=== PATIENT | male | born 1955 | race Caucasian/White ===

== ENCOUNTER 2018-10-13 12:33 | Emergency (ER) | payer MEDICARE, MEDICAID | END 2018-10-13 13:43 | disposition home or self-care (01) | LOC: M ED 12:33 | DX: T14.8XXA Other injury of unspecified body region, initial encounter (principal); W01.0XXA Fall on same level from slipping, tripping and stumbling without subsequent striking against object, initial encounter; Y92.098 Other place in other non-institutional residence as the place of occurrence of the external cause | CPT/HCPCS: 99283 ==

== ENCOUNTER 2019-05-30 15:23 | Emergency (ER) | payer MEDICARE, MEDICAID ==
[~2019-05-30 15:23] MED LIST: BENA25CA2 PO; BETA0.0543 TOP; CALC600T7 PO; CARB1TAB20 PO; DEBR6.5S4 AU; DRIS50003 PO; FLUP5TA PO; HALDOL PO; HYDROCORTISONE AU; LOTRCRE TOP; LOVA20TA2 PO; NEOMYCIN AU; NYST1POW9 TOP; OMEP20TA PO; OXYC-141 PO; POLYMYXIN B AU; PRIL20CA9 PO; STRETAB4 PO; TESS100C PO; VALI10TA PO; VALI2TAB PO
[2019-05-30 16:19] LABS: BASO % 0.7 % (0.0-1.0); EOS # 0.1 10^3/uL (0.0-0.50); EOS % 1.5 % (0.0-3.0); HEMATOCRIT 35.4 % (42.0-52.0); HEMOGLOBIN 12.6 g/dl (13.5-17.5); LYMPH % 20.7 % (24.0-44.0); MEAN CORPUSCULAR HEMOGLOBIN 36.8 pg (27.0-33.0); MEAN CORPUSCULAR HGB CONC 35.6 g/dl (32.0-36.5); MEAN CORPUSCULAR VOLUME 103.5 fl (80.0-96.0); MONO # 0.5 10^3/uL (0.0-0.8); NEUTROPHILS # 3.1 10^3/uL (1.8-7.7); NEUTROPHILS % 66.7 % (36.0-66.0); PLATELET COUNT, AUTOMATED 206 10^3/uL (150-450); RED BLOOD COUNT 3.42 10^6/uL (4.30-6.10); WHITE BLOOD COUNT 4.6 10^3/uL (4.0-10.0)
--- NOTE | 2019-05-30 16:41 | REP ---
CT brain without contrast: History: Altered mental status. No comparison brain CT. Findings: No bony calvarial defect is seen. Visualized paranasal sinuses are clear. No intraorbital abnormalities appreciated. On soft tissue window settings, there is mild diffuse atrophy. There is no evidence of intracranial hemorrhage. No mass, extra-axial fluid collection, infarct or midline shift. Impression: Minimal volume loss. Otherwise negative noncontrast head CT. Electronically Signed by Joseluis Arevalo MD 05/31/2019 07:44 A
[2019-05-30 16:52] LABS: ALBUMIN 3.4 GM/DL (3.2-5.2); ALT/SGPT 27 U/L (12-78); BILIRUBIN,DIRECT 0.1 MG/DL (0.0-0.2); BILIRUBIN,TOTAL 0.3 MG/DL (0.2-1.0); BLOOD UREA NITROGEN 14 MG/DL (7-18); CALCIUM LEVEL 8.3 MG/DL (8.8-10.2); CARBAMAZEPINE (TEGRETOL) LEVEL 7.7 UG/ML (4.0-10.0); CARBON DIOXIDE LEVEL 27 MEQ/L (21-32); CHLORIDE LEVEL 96 MEQ/L (98-107); CPK CREATINE PHOSPHOKINASE 138 U/L (39-308); CREATININE FOR GFR 0.85 MG/DL (0.70-1.30); GLOMERULAR FILTRATION RATE > 60.0 (>49); GLUCOSE, FASTING 112 MG/DL (70-100); MB/CK RELATIVE INDEX 1.45 (< OR =4); POTASSIUM SERUM 3.6 MEQ/L (3.5-5.1); SODIUM LEVEL 129 MEQ/L (136-145); TOTAL PROTEIN 6.9 GM/DL (6.4-8.2); TROPONIN I 0.02 NG/ML (< 0.10)
--- NOTE | 2019-05-30 17:32 | REP ---
Supine abdomen two AP views: There are no comparisons. There are mildly distended large and small bowel loops in a nonspecific pattern. There are no calcifications or foreign bodies. Skeletal structures are unremarkable. Impression: Nonspecific bowel gas pattern. Electronically Signed by Jeffery Mcrae MD 05/30/2019 05:23 P
[2019-05-30] MEDS ORDERED: carBAMazepine 200 MG TAB PO ONE (19:45)
--- NOTE | 2019-05-30 20:56 | ECGEPIP ---
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
[2019-05-30 22:32] LABS: CK-MB VALUE MASS 1.7 NG/ML (<3.6); CPK CREATINE PHOSPHOKINASE 113 U/L (39-308); TROPONIN I < 0.02 NG/ML (< 0.10)
[2019-05-30 23:00] VITALS: BP 144/68
--- NOTE | 2019-05-30 23:42 | ECGEPIP ---
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
== END 2019-05-30 23:35 | disposition home or self-care (01) ==
LOC: EDBD 15:23 → M ED 15:23
DX: R55 Syncope and collapse (principal); F84.0 Autistic disorder; F63.81 Intermittent explosive disorder; Z79.899 Other long term (current) drug therapy; F79 Unspecified intellectual disabilities

== ENCOUNTER 2019-08-30 11:51 | Emergency (ER) | payer MEDICARE, MEDICAID ==
[~2019-08-30] VITALS: Ht 175.3 cm; Wt 63.6 kg
[2019-08-30 11:51] VITALS: BP 135/74
[~2019-08-30 11:51] MED LIST changes: +OMEP-358 PO; -OMEP20TA PO
[2019-08-30] MEDS ORDERED: NYST1POW9 TOP (13:37)
[2019-08-30] MEDS ORDERED: MM S100C PO (13:37)
[2019-08-30] MEDS ORDERED: MOM30SS PO (13:59)
--- NOTE | 2019-08-30 14:31 | REP ---
Abdomen series: Four views. History: Constipation, rule out perforation. Comparison KUB study May 30, 2019. Findings: The patient was unable to stand and the exam was accomplished supine. AP supine chest x-ray shows no evidence of infiltrate. Mild cardiomegaly is observed. The thoracic aorta somewhat tortuous. Pulmonary vasculature is not increased. Multiple supine views of the abdomen demonstrate a normal bowel gas pattern. There is a small quantity of formed stool in the ascending colon and in the splenic flexure. The previously noted fecal distension of the rectum and sigmoid colon has resolved. There is no evidence of free air on the supine radiographs. Impression: Somewhat limited study, exam done supine. Normal bowel gas pattern improved from May 30, 2019. Electronically Signed by Joseluis Arevalo MD 08/30/2019 06:46 P
== END 2019-08-30 14:29 | disposition home or self-care (01) ==
LOC: M ED 11:51
DX: K59.00 Constipation, unspecified (principal); F79 Unspecified intellectual disabilities; F63.81 Intermittent explosive disorder; R56.9 Unspecified convulsions; Z79.899 Other long term (current) drug therapy

== ENCOUNTER 2020-11-19 10:34 | Emergency (ER) | payer MEDICARE, MEDICAID ==
[~2020-11-19] VITALS: Ht 172.7 cm; Wt 69.1 kg
[~2020-11-19 10:34] MED LIST changes: +CALC-212 PO; -CALC600T7 PO; -FLUP5TA PO; +FLUP5TAB13 PO; +MM S100C PO; +MOM30SS PO
--- NOTE | 2020-11-19 11:28 | REP ---
INDICATION: fell down stairs COMPARISON: 05/30/2019 TECHNIQUE: Axial noncontrast images from the skull base to the thoracic inlet with coronal reformations. This CT examination was performed using the following dose reduction techniques: Automated exposure control, adjustment of mA and/or kv according to the patient's size, and use of iterative reconstruction technique. FINDINGS: Age-related atrophy and microvascular ischemic changes are appreciated. The ventricles and sulci are symmetric. Johnson-white differentiation is maintained. There is no evidence for acute intracranial hemorrhage, mass/mass effect, pathology or infarction. No extra-axial fluid collection. Calvarium is intact. Paranasal sinuses and mastoid air cells are clear. IMPRESSION: Age related atrophy and microvascular ischemic changes. No acute intracranial hemorrhage, infarction, or mass/mass effect. <Electronically signed by Brian Bowen > 11/19/20 1124
--- NOTE | 2020-11-19 11:30 | REP ---
INDICATION: fell down stairs COMPARISON: None. TECHNIQUE: Axial noncontrast images from the skull base to the thoracic inlet with coronal and sagittal re-formations This CT examination was performed using the following dose reduction techniques: Automated exposure control, adjustment of mA and/or kv according to the patient's size, and use of iterative reconstruction technique. FINDINGS: Degenerative changes include exaggerated lordosis and moderate to advanced degenerative disc osteophyte complexes primarily involving C5-6 and C6-7 including osteophytosis, endplate sclerosis and disc space narrowing as well as facet arthropathy. Alignment is relatively maintained and there is no evidence for acute fracture/compression injury or subluxation. Spinal canal appears patent. Posterior elements and spinous processes are intact. Paravertebral soft tissues are within normal limits. Lung apices are clear. IMPRESSION: Age-related degenerative changes. No evidence for acute fracture/compression injury or subluxation. <Electronically signed by Brian Bowen > 11/19/20 [id number]
--- NOTE | 2020-11-19 11:53 | REP ---
INDICATION: fell down stairs, limpng (nonverbal). COMPARISON: None. TECHNIQUE: AP view pelvis, AP and frogleg views right hip. FINDINGS: There is no evidence of acute fracture, dislocation or intrinsic bone disease. IMPRESSION: No fracture or dislocation. <Electronically signed by Jeffery Johnson > 11/19/20 1145
--- NOTE | 2020-11-19 11:55 | REP ---
INDICATION: fell down stairs, limpng (nonverbal) COMPARISON: None. TECHNIQUE: Four views right knee. FINDINGS: There is no evidence of acute fracture, dislocation, or intrinsic bone disease. IMPRESSION: No fracture or dislocation. <Electronically signed by Jeffery Johnson > 11/19/20 [id number]
--- NOTE | 2020-11-19 11:56 | REP ---
INDICATION: fell down stairs, limpng (nonverbal) COMPARISON: None. TECHNIQUE: Four views right ankle. FINDINGS: There is no evidence of acute fracture, dislocation, or intrinsic bone disease. IMPRESSION: No fracture or dislocation. <Electronically signed by Jeffery Johnson > 11/19/20 [id number]
[2020-11-19 12:32] VITALS: BP 141/76
== END 2020-11-19 12:33 | disposition home or self-care (01) ==
LOC: M ED 10:34
DX: S00.81XA Abrasion of other part of head, initial encounter (principal); W10.9XXA Fall (on) (from) unspecified stairs and steps, initial encounter; Y92.89 Other specified places as the place of occurrence of the external cause; Y93.9 Activity, unspecified; Y99.9 Unspecified external cause status; F79 Unspecified intellectual disabilities; R56.9 Unspecified convulsions; Z79.899 Other long term (current) drug therapy

== ENCOUNTER → 2020-11-27 | Outpatient (REF) | payer MEDICARE, MEDICAID ==
[2020-11-28 16:30] LABS: APPEARANCE, URINE CLEAR (CLEAR); BACTERIA, URINE AUTO NEGATIVE (NEGATIVE); BILIRUBIN, URINE AUTO NEGATIVE (NEGATIVE); BLOOD, URINE BLOOD NEGATIVE (NEGATIVE); COLOR, URINE STRAW (YELLOW); GLUCOSE, URINE (UA) AUTO NEGATIVE (NEGATIVE); KETONE, URINE AUTO NEGATIVE (NEGATIVE); LEUKOCYTE ESTERASE, URINE AUTO NEGATIVE (NEGATIVE); NITRITE, URINE AUTO NEGATIVE (NEGATIVE); PROTEIN, URINE AUTO NEGATIVE (NEGATIVE); RBC, URINE AUTO 0 /HPF (0-3); SPECIFIC GRAVITY URINE AUTO 1.004 (1.002-1.035); SQUAMOUS EPITHELIAL CELL UR AU 0 /HPF (0-6); UROBILINOGEN, URINE AUTO 0.2 mg/dL (0.0-2.0); WBC, URINE AUTO 0 /HPF (0-3)
== END ==
LOC: M LAB REF 15:52
PROVIDERS: ATTEND Physician Assistant Medical
DX: R30.0 Dysuria (principal)

== ENCOUNTER → 2020-12-10 | Outpatient (CLI) | payer MEDICARE, MEDICAID ==
[2020-12-10 11:55] LABS: BASO # 0.1 10^3/uL (0.0-0.2); BASO % 1.7 % (0.0-1.0); EOS % 0.2 % (0.0-3.0); HEMATOCRIT 38.7 % (42.0-52.0); HEMOGLOBIN 13.3 g/dl (13.5-17.5); LYMPH # 1.1 10^3/uL (1.5-5.0); LYMPH % 27.5 % (24.0-44.0); MEAN CORPUSCULAR HGB CONC 34.4 g/dl (32.0-36.5); MEAN CORPUSCULAR VOLUME 104.9 fl (80.0-96.0); MONO # 0.5 10^3/uL (0.0-0.8); MONO % 11.1 % (0.0-5.0); NEUTROPHILS # 2.4 10^3/uL (1.5-8.5); PLATELET COUNT, AUTOMATED 294 10^3/uL (150-450); RED BLOOD COUNT 3.69 10^6/uL (4.30-6.10)
[2020-12-10 12:34] LABS: ALBUMIN 3.7 GM/DL (3.2-5.2); ALT/SGPT 34 U/L (12-78); BILIRUBIN,TOTAL 0.2 MG/DL (0.2-1.0); BLOOD UREA NITROGEN 15 MG/DL (7-18); CARBON DIOXIDE LEVEL 31 MEQ/L (21-32); CHLORIDE LEVEL 100 MEQ/L (98-107); CHOLESTEROL LEVEL 165 MG/DL (<200); CHOLESTEROL RISK RATIO 1.941 (<5); CREATININE FOR GFR 0.73 MG/DL (0.70-1.30); FREE T4 0.79 NG/DL (0.76-1.46); GLOMERULAR FILTRATION RATE > 60.0 (>49); GLUCOSE, FASTING 104 MG/DL (70-100); HDL CHOLESTEROL 85 MG/DL (>40); LDL CHOLESTEROL 69 MG/DL (<100); NON-HDL-C 80 MG/DL; POTASSIUM SERUM 3.8 MEQ/L (3.5-5.1); PROSTATIC SPECIFIC AG MONITOR 0.42 NG/ML (< 4.00); SODIUM LEVEL 139 MEQ/L (136-145); TOTAL PROTEIN 7.4 GM/DL (6.4-8.2); TRIGLYCERIDES LEVEL 55 MG/DL (<150)
== END ==
LOC: M WUC 08:43
PROVIDERS: ATTEND Physician Assistant Medical
DX: I10 Essential (primary) hypertension (principal); R53.83 Other fatigue; E78.2 Mixed hyperlipidemia; Z12.5 Encounter for screening for malignant neoplasm of prostate; R97.20 Elevated prostate specific antigen [PSA]

== ENCOUNTER → 2021-01-16 | Outpatient (CLI) | payer MEDICARE, MEDICAID ==
[2021-01-16 13:51] LABS: HEMOGLOBIN A1c 5.2 %
[2021-01-16 13:59] LABS: PROLACTIN 24.7 NG/ML (2.1-17.7)
== END ==
LOC: M WUC 09:16
PROVIDERS: ATTEND Physician Assistant
DX: Z51.81 Encounter for therapeutic drug level monitoring (principal); Z79.899 Other long term (current) drug therapy

== ENCOUNTER 2021-04-03 20:48 | Emergency (ER) | payer MEDICARE, MEDICAID ==
[~2021-04-03] VITALS: Ht 175.3 cm; Wt 55.9 kg
[2021-04-03] MEDS ORDERED: AUGM0.05 EX (22:32)
[2021-04-03] MEDS ORDERED: SODI1TAB12 PO (22:32)
[2021-04-03] MEDS ORDERED: NOXI1TAB PO (22:32)
[2021-04-03 23:23] VITALS: BP 123/65
== END 2021-04-03 23:25 | disposition home or self-care (01) ==
LOC: M ED 20:48
DX: S00.91XA Abrasion of unspecified part of head, initial encounter (principal); S20.419A Abrasion of unspecified back wall of thorax, initial encounter; S70.211A Abrasion, right hip, initial encounter; X58.XXXA Exposure to other specified factors, initial encounter; Y92.009 Unspecified place in unspecified non-institutional (private) residence as the place of occurrence of the external cause; Y93.89 Activity, other specified; Y99.8 Other external cause status; Z79.899 Other long term (current) drug therapy; Z86.69 Personal history of other diseases of the nervous system and sense organs

== ENCOUNTER → 2021-06-07 | Outpatient (CLI) | payer MEDICARE, MEDICAID ==
[~2021-06-07] MED LIST changes: +AUGM0.05 EX; +BENA25CA4 PO; +MIRA1POW3 PO; +NOXI1TAB PO; +SODI1TAB12 PO; +THERTAB52 PO
[2021-06-07 10:54] LABS: BASO # 0.1 10^3/uL (0.0-0.2); BASO % 1.8 % (0.0-1.0); EOS # 0.1 10^3/uL (0.0-0.5); EOS % 1.5 % (0.0-3.0); HEMATOCRIT 38.6 % (42.0-52.0); HEMOGLOBIN 13.6 g/dl (13.5-17.5); LYMPH % 30.1 % (24.0-44.0); MEAN CORPUSCULAR HEMOGLOBIN 36.6 pg (27.0-33.0); MEAN CORPUSCULAR HGB CONC 35.2 g/dl (32.0-36.5); MEAN CORPUSCULAR VOLUME 103.8 fl (80.0-96.0); MONO # 0.4 10^3/uL (0.0-0.8); MONO % 13.1 % (2.0-8.0); NEUTROPHILS # 1.8 10^3/uL (1.5-8.5); NEUTROPHILS % 53.2 % (36.0-66.0); PLATELET COUNT, AUTOMATED 230 10^3/uL (150-450); RED BLOOD COUNT 3.72 10^6/uL (4.30-6.10); WHITE BLOOD COUNT 3.3 10^3/uL (4.0-10.0)
[2021-06-07 11:09] LABS: INR 0.93; PROTHROMBIN TIME 12.7 SECONDS (12.5-14.3)
[2021-06-07 11:10] LABS: PARTIAL THROMBOPLASTIN TIME 31.5 SECONDS (24.2-38.5)
[2021-06-07 11:35] LABS: ALBUMIN 3.7 GM/DL (3.2-5.2); ALT/SGPT 35 U/L (12-78); BILIRUBIN,TOTAL 0.2 MG/DL (0.2-1.0); BLOOD UREA NITROGEN 10 MG/DL (7-18); CALCIUM LEVEL 8.8 MG/DL (8.8-10.2); CARBON DIOXIDE LEVEL 30 MEQ/L (21-32); CHLORIDE LEVEL 99 MEQ/L (98-107); CHOLESTEROL LEVEL 164 MG/DL (<200); CHOLESTEROL RISK RATIO 1.906 (<5); CREATININE FOR GFR 0.53 MG/DL (0.70-1.30); FREE T4 0.69 NG/DL (0.76-1.46); GLOMERULAR FILTRATION RATE > 60.0 (>49); GLUCOSE, FASTING 93 MG/DL (70-100); HDL CHOLESTEROL 86 MG/DL (>40); LDL CHOLESTEROL 66 MG/DL (<100); NON-HDL-C 78 MG/DL; POTASSIUM SERUM 4.1 MEQ/L (3.5-5.1); SODIUM LEVEL 135 MEQ/L (136-145); TOTAL PROTEIN 7.5 GM/DL (6.4-8.2); TRIGLYCERIDES LEVEL 58 MG/DL (<150)
--- NOTE | 2021-06-07 12:11 | REP ---
INDICATION: OTHER FATIGUE-LABS 1ST-EKG 2ND-XR LAST. COMPARISON: Comparison radiograph August 30, 2019.. TECHNIQUE: Frontal view of the chest. Single-view. FINDINGS: The patient is rotated somewhat to the right for the current exposure. There is increased density at the anterior end of the right 2nd rib which may be healing rib fracture. There is diffuse osteopenia. No other bony abnormality is seen. The lung christian are symmetrically aerated and clear. The pleural angles are sharp. Pulmonary vasculature is not increased. The thoracic aorta is somewhat tortuous. Heart size is borderline. IMPRESSION: Diffuse osteopenia. Borderline heart size. Right anterior 2nd rib fracture suspected, healing. <Electronically signed by Krzysztof Arevalo > 06/07/21 1050
--- NOTE | 2021-06-08 18:51 | ECGEPIP ---
[facility] Test Date: 2021-06-07 Pat Name: VENKATA CALVIN Department: Room: - Gender: Male Head Of Stock: GARY : 1955 Requested By: Lei Kwong Order Number: [id number] Reading MD: Sarthak Mock Measurements Intervals [place] Rate: 64 P: 60 [place]: 180 QRS: 27 QRSD: 90 T: 49 QT: 380 QTc: 392 Interpretive Statements Normal sinus rhythm Mild IVCD Compared to prior tracings (2) in the system. No remarkable changes Electronically Signed on 06-08-2021 18:51:26 EDT by Sarthak Mock
== END ==
LOC: M LAB 10:04
PROVIDERS: ATTEND Physician Assistant Medical
DX: Z01.812 Encounter for preprocedural laboratory examination (principal); R53.83 Other fatigue; I10 Essential (primary) hypertension; E78.2 Mixed hyperlipidemia; M85.80 Other specified disorders of bone density and structure, unspecified site

== ENCOUNTER → 2021-06-10 | Outpatient (CLI) | payer MEDICARE, MEDICAID | LOC: M LABSMTC 10:22 | PROVIDERS: ATTEND Anesthesiology | DX: Z01.812 Encounter for preprocedural laboratory examination (principal); Z20.822 Contact with and (suspected) exposure to COVID-19 ==

== ENCOUNTER → 2022-01-14 | Outpatient (CLI) | payer MEDICARE, MEDICAID ==
[~2022-01-14] MED LIST changes: +HALO5TAB33 PO
[2022-01-14 11:22] LABS: BASO # 0.1 10^3/uL (0.0-0.2); BASO % 2.5 % (0.0-1.0); EOS # 0.1 10^3/uL (0.0-0.5); EOS % 2.2 % (0.0-3.0); HEMOGLOBIN 13.7 g/dl (13.5-17.5); LYMPH # 1.2 10^3/uL (1.5-5.0); LYMPH % 36.2 % (24.0-44.0); MEAN CORPUSCULAR HEMOGLOBIN 35.4 pg (27.0-33.0); MEAN CORPUSCULAR HGB CONC 34.3 g/dl (32.0-36.5); MEAN CORPUSCULAR VOLUME 103.4 fl (80.0-96.0); MONO # 0.4 10^3/uL (0.0-0.8); MONO % 13.2 % (2.0-8.0); NEUTROPHILS # 1.5 10^3/uL (1.5-8.5); NEUTROPHILS % 45.6 % (36.0-66.0); PLATELET COUNT, AUTOMATED 195 10^3/uL (150-450); RED BLOOD COUNT 3.87 10^6/uL (4.30-6.10); WHITE BLOOD COUNT 3.2 10^3/uL (4.0-10.0)
[2022-01-14 11:29] LABS: INR 0.99; PROTHROMBIN TIME 13.5 SECONDS (12.7-14.5)
[2022-01-14 11:30] LABS: PARTIAL THROMBOPLASTIN TIME 31.9 SECONDS (25.9-37.0)
[2022-01-14 12:17] LABS: ALBUMIN 3.5 GM/DL (3.2-5.2); ALT/SGPT 28 U/L (12-78); BILIRUBIN,TOTAL 0.3 MG/DL (0.2-1.0); BLOOD UREA NITROGEN 11 MG/DL (7-18); CALCIUM LEVEL 8.7 MG/DL (8.8-10.2); CARBON DIOXIDE LEVEL 30 MEQ/L (21-32); CHLORIDE LEVEL 100 MEQ/L (98-107); CREATININE FOR GFR 0.65 MG/DL (0.70-1.30); GLOMERULAR FILTRATION RATE > 60.0 (>49); GLUCOSE, FASTING 82 MG/DL (70-100); PHOSPHORUS LEVEL 3.6 MG/DL (2.5-4.9); SODIUM LEVEL 134 MEQ/L (136-145); TOTAL PROTEIN 7.1 GM/DL (6.4-8.2)
== END ==
LOC: M RAD 09:53
PROVIDERS: ATTEND Physician Assistant
DX: Z01.818 Encounter for other preprocedural examination (principal); Z00.8 Encounter for other general examination; I10 Essential (primary) hypertension; Z79.899 Other long term (current) drug therapy

== ENCOUNTER → 2022-01-20 | Outpatient (CLI) | payer MEDICARE, MEDICAID | LOC: M LABSMTC 09:27 | PROVIDERS: ATTEND Anesthesiology | DX: Z01.812 Encounter for preprocedural laboratory examination (principal); Z20.822 Contact with and (suspected) exposure to COVID-19 ==

== ENCOUNTER 2022-01-24 09:14 | Day surgery (SDC) | payer MEDICARE, MEDICAID ==
[~2022-01-24] VITALS: Ht 172.7 cm; Wt 56.7 kg
[~2022-01-24 09:14] MED LIST changes: +ACETAMINOPHEN 1000MG 100ML IV BTL (OFIRMEV) (J0131 PER 10MG) As Ordered ONE; +LIDOCAINE 1% MDV 20ML VIAL SQ PRN; +LIDOCAINE 2% 100MG/5ML SDV (FOR ANES.) As Ordered ONE; +LR 1,000 ML IV ONE; +MIDAZOLAM INJ 2MG/2ML VIAL (J2250 PER 1MG) As Ordered ONE; +ONDANSETRON 4MG/2ML VIAL As Ordered ONE; +ROCURONIUM BROMIDE 50 MG/5 ML VIAL As Ordered ONE; +SUGAMMADEX SODIUM 500 MG/5 ML VIAL (BRIDION) As Ordered ONE; +dexameTHASONE 4 MG/ML 1ML VIAL (J1100 PER 1MG) As Ordered ONE; +fentaNYL 100 MCG/2 ML INJECTION As Ordered ONE; +propofoL 200 MG/20 ML VIAL As Ordered ONE
[2022-01-24] MEDS ORDERED: LIDOCAINE W/EPINEPHRINE 1% 20ML VIAL As Ordered ONE (09:42)
[2022-01-24] MEDS ORDERED: ePHEDrine SULFATE 25 MG/5 ML(5MG/ML) SYRINGE As Ordered ONE (10:12)
[2022-01-24] MEDS ORDERED: PHENYLephrine 500MCG 5ML (100MCG/ML) SYRINGE As Ordered ONE (10:14)
[2022-01-24] MEDS ORDERED: MEPERIDINE INJ 25 MG/ML VIAL (J2175) IV PRN (11:15)
[2022-01-24] MEDS ORDERED: LR 1,000 ML IV SCH (11:15)
[2022-01-24] MEDS ORDERED: ONDANSETRON 4MG/2ML VIAL IV PRN (11:15)
[2022-01-24] MEDS ORDERED: oxyCODONE 5MG TAB PO PRN (11:15)
[2022-01-24] MEDS ORDERED: fentaNYL 100 MCG/2 ML INJECTION IV PRN (11:15)
[2022-01-24 11:30] VITALS: BP 154/92
== END 2022-01-24 12:01 | disposition home or self-care (01) ==
LOC: M SDC 09:14
PROVIDERS: ATTEND Dentist Oral and Maxillofacial Surgery
DX: K02.9 Dental caries, unspecified (principal); R62.50 Unspecified lack of expected normal physiological development in childhood; K59.00 Constipation, unspecified; E55.9 Vitamin D deficiency, unspecified; K21.9 Gastro-esophageal reflux disease without esophagitis; F41.9 Anxiety disorder, unspecified; R56.9 Unspecified convulsions; R55 Syncope and collapse; Z79.899 Other long term (current) drug therapy
CPT/HCPCS: 41899; 88300; J0131; J1100; J2250; J2370; J2405; J3010

== ENCOUNTER → 2022-09-11 | Outpatient (CLI) | payer MEDICARE, MEDICAID ==
[~2022-09-11] MED LIST changes: -ACETAMINOPHEN 1000MG 100ML IV BTL (OFIRMEV) (J0131 PER 10MG) As Ordered ONE; -LIDOCAINE 1% MDV 20ML VIAL SQ PRN; -LIDOCAINE 2% 100MG/5ML SDV (FOR ANES.) As Ordered ONE; -LR 1,000 ML IV ONE; -MIDAZOLAM INJ 2MG/2ML VIAL (J2250 PER 1MG) As Ordered ONE; -ONDANSETRON 4MG/2ML VIAL As Ordered ONE; -ROCURONIUM BROMIDE 50 MG/5 ML VIAL As Ordered ONE; -SUGAMMADEX SODIUM 500 MG/5 ML VIAL (BRIDION) As Ordered ONE; -dexameTHASONE 4 MG/ML 1ML VIAL (J1100 PER 1MG) As Ordered ONE; -fentaNYL 100 MCG/2 ML INJECTION As Ordered ONE; -propofoL 200 MG/20 ML VIAL As Ordered ONE
[2022-09-11 10:07] LABS: BASO % 0.7 % (0.0-1.0); EOS # 0.1 10^3/uL (0.0-0.5); HEMATOCRIT 40.5 % (42.0-52.0); LYMPH # 1.3 10^3/uL (1.5-5.0); LYMPH % 28.4 % (24.0-44.0); MEAN CORPUSCULAR HEMOGLOBIN 35.8 pg (27.0-33.0); MEAN CORPUSCULAR HGB CONC 34.6 g/dl (32.0-36.5); MEAN CORPUSCULAR VOLUME 103.6 fl (80.0-96.0); MONO # 0.5 10^3/uL (0.0-0.8); NEUTROPHILS # 2.6 10^3/uL (1.5-8.5); NEUTROPHILS % 56.7 % (36.0-66.0); PLATELET COUNT, AUTOMATED 254 10^3/uL (150-450); RED BLOOD COUNT 3.91 10^6/uL (4.30-6.10); WHITE BLOOD COUNT 4.5 10^3/uL (4.0-10.0)
[2022-09-11 10:57] LABS: ALBUMIN 3.6 GM/DL (3.2-5.2); ALT/SGPT 36 U/L (12-78); BILIRUBIN,TOTAL 0.4 MG/DL (0.2-1.0); BLOOD UREA NITROGEN 14 MG/DL (7-18); CALCIUM LEVEL 9.1 MG/DL (8.8-10.2); CARBON DIOXIDE LEVEL 28 MEQ/L (21-32); CHLORIDE LEVEL 101 MEQ/L (98-107); CHOLESTEROL LEVEL 152 MG/DL (<200); CREATININE FOR GFR 0.72 MG/DL (0.70-1.30); GLOMERULAR FILTRATION RATE > 60.0 (>49); GLUCOSE, FASTING 82 MG/DL (70-100); HDL CHOLESTEROL 71 MG/DL (>40); LDL CHOLESTEROL 70 MG/DL (<100); NON-HDL-C 81 MG/DL; POTASSIUM SERUM 4.1 MEQ/L (3.5-5.1); SODIUM LEVEL 136 MEQ/L (136-145); TOTAL PROTEIN 7.6 GM/DL (6.4-8.2); TRIGLYCERIDES LEVEL 56 MG/DL (<150)
[2022-09-11 11:21] LABS: PROLACTIN 35.7 NG/ML (2.1-17.7)
== END ==
LOC: M WUC 08:31
PROVIDERS: ATTEND Physician Assistant
DX: Z79.899 Other long term (current) drug therapy (principal)

== ENCOUNTER → 2023-07-27 | Outpatient (REF) | payer MEDICARE, MEDICAID ==
[~2023-07-27] MED LIST changes: +DIAZ-654 PO; -VALI10TA PO
[2023-07-27 13:08] LABS: THYROXINE (T4) 4.7 UG/DL (4.5-10.9)
[2023-07-27 13:09] LABS: THYROID STIMULATING HORMONE 3.619 uIU/ML (0.55-4.78)
== END ==
LOC: M WUC 11:36
PROVIDERS: ATTEND Nurse Practitioner Adult Health
DX: E03.9 Hypothyroidism, unspecified (principal)

== ENCOUNTER → 2023-07-31 | Outpatient (CLI) | payer MEDICARE, MEDICAID | LOC: M RAD 12:11 | PROVIDERS: ATTEND Nurse Practitioner Adult Health | DX: E03.9 Hypothyroidism, unspecified (principal); R05.3 Chronic cough; F50.9 Eating disorder, unspecified ==

== ENCOUNTER 2023-09-29 11:33 | Emergency (ER) | payer MEDICARE, MEDICAID ==
[~2023-09-29] VITALS: Ht 172.7 cm; Wt 60.8 kg
[2023-09-29 12:16] LABS: BASO % 0.9 % (0.0-1.0); EOS % 0.6 % (0.0-3.0); HEMATOCRIT 40.4 % (42.0-52.0); HEMOGLOBIN 14.1 g/dl (13.5-17.5); LYMPH # 0.7 10^3/uL (1.5-5.0); MEAN CORPUSCULAR HEMOGLOBIN 36.1 pg (27.0-33.0); MEAN CORPUSCULAR HGB CONC 34.9 g/dl (32.0-36.5); MEAN CORPUSCULAR VOLUME 103.3 fl (80.0-96.0); MONO # 0.4 10^3/uL (0.0-0.8); MONO % 9.4 % (2.0-8.0); NEUTROPHILS # 3.4 10^3/uL (1.5-8.5); NEUTROPHILS % 73.7 % (36.0-66.0); PLATELET COUNT, AUTOMATED 218 10^3/uL (150-450); RED BLOOD COUNT 3.91 10^6/uL (4.30-6.10); WHITE BLOOD COUNT 4.7 10^3/uL (4.0-10.0)
[2023-09-29 12:43] LABS: CK-MB VALUE MASS < 1.0 NG/ML (<3.6)
[2023-09-29 12:44] LABS: ALBUMIN 3.7 G/DL (3.2-5.2); ALKALINE PHOSPHATASE 91 U/L (46-116); ALT/SGPT 34 U/L (7.0-40); AST/SGOT 26 U/L (<34); BILIRUBIN,DIRECT 0.1 MG/DL (<0.4); BILIRUBIN,TOTAL 0.3 MG/DL (0.3-1.2); TOTAL PROTEIN 7.2 G/DL (5.7-8.2)
[2023-09-29 12:46] LABS: THYROID STIMULATING HORMONE 7.824 uIU/ML (0.55-4.78)
[2023-09-29 12:52] LABS: CPK CREATINE PHOSPHOKINASE 84 U/L (46-171); MB/CK RELATIVE INDEX 1.19 (< OR =4)
[2023-09-29 12:55] LABS: RSV AMPLIFICATION NEGATIVE (NEGATIVE)
[2023-09-29 14:52] VITALS: BP 152/94; TEMP 98.9; O2SAT 97
== END 2023-09-29 15:06 | disposition home or self-care (01) ==
LOC: M ED 11:33
DX: I95.9 Hypotension, unspecified (principal); F79 Unspecified intellectual disabilities; K21.9 Gastro-esophageal reflux disease without esophagitis; Z79.899 Other long term (current) drug therapy

== ENCOUNTER → 2023-10-20 | Outpatient (CLI) | payer MEDICARE, MEDICAID ==
[~2023-10-20] MED LIST changes: +E-Z-GAS II EFFERVESCENT PACKET (SODIUM BICARB./CITRIC ACID/SIMETHICONE) As Ordered ONE; +E-Z-HD 98% w/w 340GM SUSP BTL As Ordered ONE; +E-Z-PAQUE 96% w/w SUSP 176GM BTL As Ordered ONE
== END ==
LOC: M RAD 09:45
PROVIDERS: ATTEND Nurse Practitioner Adult Health
DX: R11.10 Vomiting, unspecified (principal); R19.7 Diarrhea, unspecified; N39.46 Mixed incontinence; Z53.9 Procedure and treatment not carried out, unspecified reason

== ENCOUNTER → 2023-10-21 | Outpatient (CLI) | payer MEDICARE, MEDICAID ==
[~2023-10-21] MED LIST changes: -E-Z-GAS II EFFERVESCENT PACKET (SODIUM BICARB./CITRIC ACID/SIMETHICONE) As Ordered ONE; -E-Z-HD 98% w/w 340GM SUSP BTL As Ordered ONE; -E-Z-PAQUE 96% w/w SUSP 176GM BTL As Ordered ONE
[2023-10-21 06:32] LABS: BASO # 0.1 10^3/uL (0.0-0.2); BASO % 1.4 % (0.0-1.0); EOS # 0.1 10^3/uL (0.0-0.5); EOS % 1.6 % (0.0-3.0); HEMATOCRIT 38.8 % (42.0-52.0); HEMOGLOBIN 13.6 g/dl (13.5-17.5); LYMPH # 1.2 10^3/uL (1.5-5.0); LYMPH % 33.3 % (24.0-44.0); MEAN CORPUSCULAR HEMOGLOBIN 36.4 pg (27.0-33.0); MEAN CORPUSCULAR HGB CONC 35.1 g/dl (32.0-36.5); MEAN CORPUSCULAR VOLUME 103.7 fl (80.0-96.0); MONO # 0.4 10^3/uL (0.0-0.8); NEUTROPHILS % 53.4 % (36.0-66.0); PLATELET COUNT, AUTOMATED 377 10^3/uL (150-450); RED BLOOD COUNT 3.74 10^6/uL (4.30-6.10); WHITE BLOOD COUNT 3.7 10^3/uL (4.0-10.0)
[2023-10-21 06:55] LABS: ALBUMIN 3.1 G/DL (3.2-5.2); ALKALINE PHOSPHATASE 83 U/L (46-116); ALT/SGPT 32 U/L (7.0-40); AST/SGOT 18 U/L (<34); BILIRUBIN,TOTAL 0.3 MG/DL (0.3-1.2); BLOOD UREA NITROGEN 9 MG/DL (9-23); CALCIUM LEVEL 8.7 MG/DL (8.3-10.6); CARBON DIOXIDE LEVEL 29 MMOL/L (20-31); CHLORIDE LEVEL 102 MMOL/L (98-107); CHOLESTEROL LEVEL 146 MG/DL (<200); CHOLESTEROL RISK RATIO 2.85 (<5); CREATININE FOR GFR 0.57 MG/DL (0.70-1.30); GLOMERULAR FILTRATION RATE > 60.0 (>49); GLUCOSE, FASTING 103 MG/DL (74-106); HDL CHOLESTEROL 51.1 MG/DL (>40); LDL CHOLESTEROL 79.7 MG/DL (<100); NON-HDL-C 94.9 MG/DL; POTASSIUM SERUM 4.2 MMOL/L (3.5-5.1); PROLACTIN 23.43 NG/ML (2.1-17.7); SODIUM LEVEL 137 MMOL/L (136-145); TOTAL PROTEIN 6.9 G/DL (5.7-8.2); TRIGLYCERIDES LEVEL 76 MG/DL (<150)
[2023-10-21 06:59] LABS: HEMOGLOBIN A1c 5.1 % (4.0-6.0)
== END ==
LOC: M LAB 06:04
PROVIDERS: ATTEND Physician Assistant
DX: Z79.899 Other long term (current) drug therapy (principal)

== ENCOUNTER → 2024-05-02 | Outpatient (REF) | payer MEDICARE, MEDICAID ==
[~2024-05-02] MED LIST changes: -MIRA1POW3 PO; +MIRA33506 PO
== END ==
LOC: M LAB REF 12:08
PROVIDERS: ATTEND Nurse Practitioner Adult Health
DX: R35.89 Other polyuria (principal)

== ENCOUNTER 2024-06-02 17:29 | Emergency (ER) | payer MEDICARE, MEDICAID ==
[~2024-06-02] VITALS: Ht 175.3 cm; Wt 55.9 kg
[2024-06-02 18:35] LABS: BASO # 0.1 10^3/uL (0.0-0.2); BASO % 1.6 % (0.0-1.0); EOS # 0.1 10^3/uL (0.0-0.5); EOS % 2.7 % (0.0-3.0); HEMATOCRIT 37.7 % (42.0-52.0); HEMOGLOBIN 13.1 g/dl (13.5-17.5); LYMPH # 1.6 10^3/uL (1.5-5.0); LYMPH % 41.9 % (24.0-44.0); MEAN CORPUSCULAR HEMOGLOBIN 36.7 pg (27.0-33.0); MEAN CORPUSCULAR HGB CONC 34.7 g/dl (32.0-36.5); MEAN CORPUSCULAR VOLUME 105.6 fl (80.0-96.0); MONO # 0.4 10^3/uL (0.0-0.8); MONO % 10.5 % (2.0-8.0); NEUTROPHILS # 1.6 10^3/uL (1.5-8.5); NEUTROPHILS % 42.8 % (36.0-66.0); PLATELET COUNT, AUTOMATED 188 10^3/uL (150-450); RED BLOOD COUNT 3.57 10^6/uL (4.30-6.10); WHITE BLOOD COUNT 3.7 10^3/uL (4.0-10.0)
[2024-06-02 18:56] LABS: BLOOD UREA NITROGEN 13 MG/DL (9-23); CALCIUM LEVEL 8.7 MG/DL (8.3-10.6); CARBON DIOXIDE LEVEL 29 MMOL/L (20-31); CHLORIDE LEVEL 105 MMOL/L (98-107); CREATININE FOR GFR 0.66 MG/DL (0.70-1.30); GLOMERULAR FILTRATION RATE > 60.0 (>49); GLUCOSE, FASTING 110 MG/DL (74-106); SODIUM LEVEL 139 MMOL/L (136-145)
[2024-06-02 18:58] LABS: FREE T4 0.74 NG/DL (0.89-1.76); THYROID STIMULATING HORMONE 4.651 uIU/ML (0.55-4.78)
[2024-06-02 19:22] VITALS: BP 148/78; TEMP 98.8; O2SAT 98
== END 2024-06-02 19:26 | disposition home or self-care (01) ==
LOC: EDBD 17:29 → M ED 17:29
DX: Z71.1 Person with feared health complaint in whom no diagnosis is made (principal); F63.81 Intermittent explosive disorder; R00.1 Bradycardia, unspecified; F79 Unspecified intellectual disabilities; G40.909 Epilepsy, unspecified, not intractable, without status epilepticus; E78.5 Hyperlipidemia, unspecified; Z79.899 Other long term (current) drug therapy

== ENCOUNTER → 2024-07-14 | Outpatient (CLI) | payer MEDICARE, MEDICAID ==
[2024-07-14 12:23] LABS: HEMATOCRIT 35.8 % (42.0-52.0); HEMOGLOBIN 12.3 g/dl (13.5-17.5); MEAN CORPUSCULAR HEMOGLOBIN 36.9 pg (27.0-33.0); MEAN CORPUSCULAR HGB CONC 34.4 g/dl (32.0-36.5); MEAN CORPUSCULAR VOLUME 107.5 fl (80.0-96.0); PLATELET COUNT, AUTOMATED 198 10^3/uL (150-450); RED BLOOD COUNT 3.33 10^6/uL (4.30-6.10); WHITE BLOOD COUNT 13.1 10^3/uL (4.0-10.0)
[2024-07-14 12:46] LABS: VITAMIN B12 LEVEL 1062 PG/ML (211-911)
[2024-07-14 12:47] LABS: ALBUMIN 3.5 G/DL (3.2-5.2); ALKALINE PHOSPHATASE 90 U/L (46-116); ALT/SGPT 42 U/L (7.0-40); AST/SGOT 27 U/L (<34); BILIRUBIN,TOTAL 0.6 MG/DL (0.3-1.2); BLOOD UREA NITROGEN 10 MG/DL (9-23); CALCIUM LEVEL 8.8 MG/DL (8.3-10.6); CARBON DIOXIDE LEVEL 31 MMOL/L (20-31); CHLORIDE LEVEL 102 MMOL/L (98-107); CREATININE FOR GFR 0.56 MG/DL (0.70-1.30); FOLATE > 24.0 NG/ML (>5.4); GLOMERULAR FILTRATION RATE > 60.0 (>49); GLUCOSE, FASTING 105 MG/DL (74-106); IRON (FE) 16 UG/DL (65-175); PERCENT SATURATION 6.3 % (19.7-50.0); SODIUM LEVEL 136 MMOL/L (136-145); THYROID STIMULATING HORMONE 5.015 uIU/ML (0.55-4.78); TOTAL IRON BINDING CAPACITY 256 UG/DL (250-425); TOTAL PROTEIN 6.9 G/DL (5.7-8.2)
[2024-07-14 13:39] LABS: LYMPHOCYTES 6 % (16-44); NEUTROPHILS 94 % (28-66)
[2024-07-14 13:40] LABS: PLATELET ESTIMATE NORMAL (NORMAL)
== END ==
LOC: M WUC 09:34
PROVIDERS: ATTEND Nurse Practitioner Adult Health
DX: F79 Unspecified intellectual disabilities (principal); E03.9 Hypothyroidism, unspecified; D53.9 Nutritional anemia, unspecified

== ENCOUNTER 2024-11-02 01:04 | Emergency (ER) | payer MEDICAID, MEDICARE ==
[~2024-11-02] VITALS: Ht 162.6 cm; Wt 81.8 kg
[~2024-11-02 01:04] MED LIST changes: -AUGM0.05 EX; +AUGM0.0511 EX; +NYST1POW3 TOP; -NYST1POW9 TOP
[2024-11-02 02:49] VITALS: BP 130/70; TEMP 98.2; O2SAT 100
[2024-11-02] MEDS ORDERED: AMOX875T2 PO (12:16)
[2024-11-02] MEDS ORDERED: AZIT-12 PO (12:16)
[2024-11-02] MEDS ORDERED: FOLI1TAB11 PO (12:16)
[2024-11-02] MEDS ORDERED: LEVO50TA5 PO (12:16)
[2024-11-02] MEDS ORDERED: CALC1TAB63 PO (14:59)
[2024-11-02] MEDS ORDERED: APAP325T4 PO (14:59)
[2024-11-02] MEDS ORDERED: DIAZ10TA2 PO (14:59)
[2024-11-02] MEDS ORDERED: IBUP-1720 PO (14:59)
[2024-11-02] MEDS ORDERED: DIPH50CA29 PO (14:59)
[2024-11-02] MEDS ORDERED: MURI6.5D AU (14:59)
[2024-11-02] MEDS ORDERED: VITA500045 PO (14:59)
[2024-11-02] MEDS ORDERED: STRETAB36 PO (14:59)
[2024-11-02] MEDS ORDERED: DOK100TA2 PO (14:59)
== END 2024-11-02 06:54 | disposition home or self-care (01) ==
LOC: M ED 01:04 → EDBD 01:04 → M ED 06:54
DX: S00.03XA Contusion of scalp, initial encounter (principal); Y92.019 Unspecified place in single-family (private) house as the place of occurrence of the external cause; Y93.9 Activity, unspecified; Y99.9 Unspecified external cause status; W10.8XXA Fall (on) (from) other stairs and steps, initial encounter; Z79.1 Long term (current) use of non-steroidal anti-inflammatories (NSAID); Z79.2 Long term (current) use of antibiotics; Z79.899 Other long term (current) drug therapy

== ENCOUNTER 2024-11-02 11:20 | Inpatient (IN) | payer MEDICARE ==
[~2024-11-02] VITALS: Ht 162.6 cm; Wt 46.7 kg
[~2024-11-02 11:20] MED LIST changes: +LEVOTHYROXINE 100MCG (0.1MG) 5ML SDV PF (SOLUTION FORM) IV ONE
[2024-11-02] MEDS ORDERED: AZIT-12 PO (12:16)
[2024-11-02] MEDS ORDERED: AMOX875T2 PO (12:16)
[2024-11-02] MEDS ORDERED: FOLI1TAB11 PO (12:16)
[2024-11-02] MEDS ORDERED: LEVO50TA5 PO (12:16)
[2024-11-02 13:28] LABS: BASO % 0.3 % (0.0-1.0); EOS % 0.3 % (0.0-3.0); HEMATOCRIT 36.3 % (42.0-52.0); HEMOGLOBIN 12.7 g/dl (13.5-17.5); LYMPH # 0.6 10^3/uL (1.5-5.0); LYMPH % 16.4 % (24.0-44.0); MEAN CORPUSCULAR HEMOGLOBIN 36.6 pg (27.0-33.0); MEAN CORPUSCULAR VOLUME 104.6 fl (80.0-96.0); MONO # 0.4 10^3/uL (0.0-0.8); MONO % 10.2 % (2.0-8.0); NEUTROPHILS # 2.6 10^3/uL (1.5-8.5); NEUTROPHILS % 72.2 % (36.0-66.0); PLATELET COUNT, AUTOMATED 159 10^3/uL (150-450); RED BLOOD COUNT 3.47 10^6/uL (4.30-6.10); WHITE BLOOD COUNT 3.5 10^3/uL (4.0-10.0)
[2024-11-02 13:39] LABS: KETONE, URINE AUTO RFX TRACE mg/dL (NEGATIVE); LEUKOCYTE ESTERASE UR AUTO RFX NEGATIVE (NEGATIVE); MUCUS, URINE RFX SMALL (NEGATIVE); NITRITE, URINE AUTO RFX NEGATIVE (NEGATIVE); RBC, URINE AUTO RFX TNTC /HPF (0-3); SQUAM EPITHELIAL CELL UR AURFX 0 /HPF (0-6)
[2024-11-02 13:41] LABS: WBC, URINE AUTO RFX 56 /HPF (0-3)
[2024-11-02 13:44] LABS: ALBUMIN 3.1 G/DL (3.2-5.2); ALKALINE PHOSPHATASE 92 U/L (40-129); ALT/SGPT 66 U/L (7.0-40); AST/SGOT 56 U/L (<34); BILIRUBIN,DIRECT < 0.1 MG/DL (<0.4); BILIRUBIN,TOTAL 0.3 MG/DL (0.3-1.2); BLOOD UREA NITROGEN 25 MG/DL (9-23); CARBON DIOXIDE LEVEL 30 MMOL/L (20-31); CHLORIDE LEVEL 105 MMOL/L (98-107); CK-MB VALUE MASS 6.6 NG/ML (<3.6); CPK CREATINE PHOSPHOKINASE 242 U/L (46-171); CREATININE FOR GFR 0.76 MG/DL (0.70-1.30); GLOMERULAR FILTRATION RATE > 60.0 (>49); GLUCOSE, FASTING 111 MG/DL (74-106); MB/CK RELATIVE INDEX 2.72 (< OR =4); POTASSIUM SERUM 3.3 MMOL/L (3.5-5.1); SODIUM LEVEL 143 MMOL/L (136-145); TOTAL PROTEIN 6.5 G/DL (5.7-8.2)
[2024-11-02 13:47] LABS: THYROID STIMULATING HORMONE 15.031 uIU/ML (0.55-4.78)
[2024-11-02] MEDS: PIPERACILLIN/TAZOBACTAM SOD 4.5 GM in DEXTROSE 5% (D5W) ADV/MINI-BAG 50 ML IV ONE (14:29)
[2024-11-02] MEDS: POTASSIUM CHLORIDE 10% LIQ 20MEQ/15ML UDC PO ONE (14:41)
[2024-11-02] MEDS ORDERED: APAP325T4 PO (14:59)
[2024-11-02] MEDS ORDERED: VITA500045 PO (14:59)
[2024-11-02] MEDS ORDERED: MURI6.5D AU (14:59)
[2024-11-02] MEDS ORDERED: DIPH50CA29 PO (14:59)
[2024-11-02] MEDS ORDERED: DIAZ10TA2 PO (14:59)
[2024-11-02] MEDS ORDERED: IBUP-1720 PO (14:59)
[2024-11-02] MEDS ORDERED: CALC1TAB63 PO (14:59)
[2024-11-02] MEDS ORDERED: STRETAB36 PO (14:59)
[2024-11-02] MEDS ORDERED: DOK100TA2 PO (14:59)
[2024-11-02] MEDS ORDERED: HOME MED LIST COMPLETE! XX SCH (15:05)
[2024-11-02 20:44] VITALS: BP 124/74; TEMP 97.6; O2SAT 100
[2024-11-02] MEDS: HYDROCORTISONE 100MG/2ML VIAL IV ONE (21:30)
[2024-11-03] MEDS: LEVOTHYROXINE 100MCG (0.1MG) 5ML SDV PF (SOLUTION FORM) IV ONE (00:26)
[2024-11-03] MEDS: PIPERACILLIN/TAZOBACTAM SOD 4.5 GM in DEXTROSE 5% (D5W) ADV/MINI-BAG 50 ML IV SCH ×2 (00:26→12:06)
[2024-11-03 00:42] VITALS: BP 154/84; TEMP 97.5; O2SAT 98
[2024-11-03 04:24] VITALS: BP 146/84; TEMP 98; O2SAT 100
[2024-11-03 05:55] LABS: HEMATOCRIT 36.4 % (42.0-52.0); HEMOGLOBIN 12.6 g/dl (13.5-17.5); MEAN CORPUSCULAR HEMOGLOBIN 36.6 pg (27.0-33.0); MEAN CORPUSCULAR HGB CONC 34.6 g/dl (32.0-36.5); MEAN CORPUSCULAR VOLUME 105.8 fl (80.0-96.0); PLATELET COUNT, AUTOMATED 151 10^3/uL (150-450); RED BLOOD COUNT 3.44 10^6/uL (4.30-6.10); WHITE BLOOD COUNT 4.1 10^3/uL (4.0-10.0)
[2024-11-03 06:16] LABS: CORTISOL AM 42.1 UG/DL (4.3-22.4)
[2024-11-03 06:19] LABS: ALBUMIN 2.9 G/DL (3.2-5.2); ALKALINE PHOSPHATASE 91 U/L (40-129); ALT/SGPT 63 U/L (7.0-40); AST/SGOT 48 U/L (<34); BILIRUBIN,TOTAL 0.4 MG/DL (0.3-1.2); BLOOD UREA NITROGEN 25 MG/DL (9-23); CALCIUM LEVEL 8.9 MG/DL (8.3-10.6); CARBON DIOXIDE LEVEL 30 MMOL/L (20-31); CHLORIDE LEVEL 107 MMOL/L (98-107); CREATININE FOR GFR 0.74 MG/DL (0.70-1.30); GLOMERULAR FILTRATION RATE > 60.0 (>49); GLUCOSE, FASTING 127 MG/DL (74-106); POTASSIUM SERUM 3.8 MMOL/L (3.5-5.1); SODIUM LEVEL 144 MMOL/L (136-145); TOTAL PROTEIN 6.2 G/DL (5.7-8.2)
[2024-11-03 06:24] LABS: PROCALCITONIN 0.04 ng/ml
[2024-11-03 08:00] VITALS: BP 140/80; TEMP 97.9; O2SAT 99
[2024-11-03] MEDS: LEVOTHYROXINE 100MCG (0.1MG) 5ML SDV PF (SOLUTION FORM) IV SCH (12:07)
[2024-11-03] MEDS: ENOXAPARIN 40MG/0.4ML SYRINGE (J1650 PER 10MG) SC SCH (12:07)
[2024-11-03] MEDS: diazePAM 5MG TABLET PO SCH (12:07)
[2024-11-03] MEDS: OMEPRAZOLE 20MG CAP PO SCH (12:07)
[2024-11-03 12:52] VITALS: BP 120/72; TEMP 97.8; O2SAT 98
[2024-11-03] MEDS: HYDROCORTISONE 100MG/2ML VIAL IV SCH (14:04)
[2024-11-03] MEDS: carBAMazepine 200MG TABLET PO SCH (14:04)
[2024-11-03] MEDS: LR 1,000 ML IV ONE (14:04)
[2024-11-03 16:50] VITALS: BP 127/79; TEMP 97.7
[2024-11-03 19:59] VITALS: BP 121/72; TEMP 97.1; O2SAT 97
[2024-11-03] MEDS: FOLIC ACID 1MG TAB PO SCH (21:44)
[2024-11-04] VITALS (8 sets, daily range): BP systolic 107–146; BP diastolic 59–90; TEMP 97.8–99.2; O2SAT 96–99
[2024-11-04 06:08] LABS: FREE T4 0.98 NG/DL (0.89-1.76); THYROXINE (T4) 6.3 UG/DL (4.5-10.9)
[2024-11-04 06:09] LABS: THYROID STIMULATING HORMONE 5.484 uIU/ML (0.55-4.78)
[2024-11-04] MEDS: MIRALAX *UNIT DOSE* 17GM PACKET PO SCH (09:00)
[2024-11-04] MEDS: HYDROCORTISONE 100MG/2ML VIAL IV SCH (17:23)
[2024-11-05 03:00] VITALS: BP 156/91; TEMP 97.6; O2SAT 98
[2024-11-05 05:39] LABS: HEMATOCRIT 35.2 % (42.0-52.0); HEMOGLOBIN 11.8 g/dl (13.5-17.5); MEAN CORPUSCULAR HGB CONC 33.5 g/dl (32.0-36.5); MEAN CORPUSCULAR VOLUME 107.3 fl (80.0-96.0); PLATELET COUNT, AUTOMATED 144 10^3/uL (150-450); RED BLOOD COUNT 3.28 10^6/uL (4.30-6.10)
[2024-11-05 07:47] VITALS: BP 143/84; TEMP 97.6; O2SAT 98
[2024-11-05] MEDS: LEVOTHYROXINE 100MCG TABLET (0.1MG) PO SCH (10:06)
[2024-11-05 12:00] VITALS: BP 118/73; TEMP 98; O2SAT 94
[2024-11-05 16:00] VITALS: BP 127/80; TEMP 98.3; O2SAT 98
[2024-11-05 20:04] VITALS: BP 120/75; TEMP 98.7; O2SAT 96
[2024-11-05 21:52] LABS: FREE T4 0.85 NG/DL (0.89-1.76)
[2024-11-05 21:53] LABS: THYROID STIMULATING HORMONE 2.91 uIU/ML (0.55-4.78); THYROXINE (T4) 4.9 UG/DL (4.5-10.9)
[2024-11-06 00:06] VITALS: BP 117/73; TEMP 98.1; O2SAT 97
[2024-11-06 04:15] VITALS: BP 139/83; TEMP 98.3; O2SAT 98
[2024-11-06] MEDS: LevoFLOXacin 750 MG TABLET PO SCH (05:29)
[2024-11-06 07:52] VITALS: BP 138/88; TEMP 98.6; O2SAT 98
[2024-11-06] MEDS: OMEPRAZOLE 20MG CAP PO SCH (09:00)
[2024-11-06] MEDS ORDERED: PANTOPRAZOLE 20 MG TAB PO SCH (09:00)
[2024-11-06 12:00] VITALS: BP 134/79; TEMP 99; O2SAT 100
[2024-11-06 16:00] VITALS: BP 129/83; TEMP 97.4; O2SAT 98
[2024-11-06 19:29] VITALS: BP 129/84; TEMP 97.5; O2SAT 98
[2024-11-06 20:43] LABS: KETONE, URINE AUTO RFX NEGATIVE (NEGATIVE); LEUKOCYTE ESTERASE UR AUTO RFX NEGATIVE (NEGATIVE); MUCUS, URINE RFX SMALL (NEGATIVE); NITRITE, URINE AUTO RFX NEGATIVE (NEGATIVE); RBC, URINE AUTO RFX TNTC /HPF (0-3); SQUAM EPITHELIAL CELL UR AURFX 0 /HPF (0-6); WBC, URINE AUTO RFX 2 /HPF (0-3)
[2024-11-07 07:30] VITALS: BP 142/84; TEMP 98.1; O2SAT 100
[2024-11-07] MEDS ORDERED: E-Z-PAQUE 96% w/w SUSP 176GM BTL As Ordered ONE (09:55)
[2024-11-07] MEDS ORDERED: E-Z-HD 98% w/w 340GM SUSP BTL As Ordered ONE (09:55)
[2024-11-07 11:31] LABS: BASO % 0.8 % (0.0-1.0); EOS % 1.3 % (0.0-3.0); HEMATOCRIT 36.4 % (42.0-52.0); HEMOGLOBIN 12.5 g/dl (13.5-17.5); LYMPH # 0.9 10^3/uL (1.5-5.0); LYMPH % 36.3 % (24.0-44.0); MEAN CORPUSCULAR HEMOGLOBIN 37.1 pg (27.0-33.0); MEAN CORPUSCULAR HGB CONC 34.3 g/dl (32.0-36.5); MONO # 0.2 10^3/uL (0.0-0.8); MONO % 9.6 % (2.0-8.0); NEUTROPHILS # 1.3 10^3/uL (1.5-8.5); PLATELET COUNT, AUTOMATED 148 10^3/uL (150-450); RED BLOOD COUNT 3.37 10^6/uL (4.30-6.10); WHITE BLOOD COUNT 2.4 10^3/uL (4.0-10.0)
[2024-11-07 12:00] LABS: ALBUMIN 2.5 G/DL (3.2-5.2); ALKALINE PHOSPHATASE 83 U/L (40-129); ALT/SGPT 48 U/L (7.0-40); AST/SGOT 33 U/L (<34); BILIRUBIN,TOTAL 0.4 MG/DL (0.3-1.2); BLOOD UREA NITROGEN 20 MG/DL (9-23); CALCIUM LEVEL 8.5 MG/DL (8.3-10.6); CARBON DIOXIDE LEVEL 33 MMOL/L (20-31); CHLORIDE LEVEL 107 MMOL/L (98-107); CREATININE FOR GFR 0.68 MG/DL (0.70-1.30); FREE T4 0.84 NG/DL (0.89-1.76); GLOMERULAR FILTRATION RATE > 60.0 (>49); GLUCOSE, FASTING 82 MG/DL (74-106); POTASSIUM SERUM 3.9 MMOL/L (3.5-5.1); SODIUM LEVEL 146 MMOL/L (136-145); TOTAL PROTEIN 6.2 G/DL (5.7-8.2)
[2024-11-07 12:10] LABS: THYROXINE (T4) 5.1 UG/DL (4.5-10.9)
[2024-11-07] MEDS ORDERED: BARIUM SULFATE 700 MG TABLET (E-Z-DISK) As Ordered ONE (14:57)
[2024-11-07] MEDS ORDERED: VARIBAR NECTAR 40% w/v 240ML SUSP BTL As Ordered ONE (14:57)
[2024-11-07] MEDS ORDERED: VARIBAR PUDDING 40% w/v 230ML TUBE As Ordered ONE (14:57)
[2024-11-07 19:13] VITALS: BP 135/86; TEMP 97; O2SAT 98
[2024-11-08] MEDS: LEVOTHYROXINE 125MCG TABLET (0.125MG) PO SCH (06:09)
[2024-11-08 06:20] LABS: HEMATOCRIT 35.1 % (42.0-52.0); HEMOGLOBIN 11.9 g/dl (13.5-17.5); MEAN CORPUSCULAR HEMOGLOBIN 36.2 pg (27.0-33.0); MEAN CORPUSCULAR HGB CONC 33.9 g/dl (32.0-36.5); MEAN CORPUSCULAR VOLUME 106.7 fl (80.0-96.0); PLATELET COUNT, AUTOMATED 146 10^3/uL (150-450); RED BLOOD COUNT 3.29 10^6/uL (4.30-6.10); WHITE BLOOD COUNT 2.8 10^3/uL (4.0-10.0)
[2024-11-08 07:37] VITALS: BP 130/80; TEMP 98.2; O2SAT 98
[2024-11-09 08:03] VITALS: BP 134/85; TEMP 97.7; O2SAT 92
[2024-11-09 11:54] VITALS: BP 139/75; TEMP 97.1
[2024-11-09 14:30] VITALS: BP 125/76; TEMP 97.6
[2024-11-10 00:56] LABS: BLOOD UREA NITROGEN 20 MG/DL (9-23); CALCIUM LEVEL 8.2 MG/DL (8.3-10.6); CARBON DIOXIDE LEVEL 31 MMOL/L (20-31); CHLORIDE LEVEL 110 MMOL/L (98-107); CREATININE FOR GFR 0.78 MG/DL (0.70-1.30); GLOMERULAR FILTRATION RATE > 60.0 (>49); GLUCOSE, FASTING 91 MG/DL (74-106); POTASSIUM SERUM 4.6 MMOL/L (3.5-5.1); SODIUM LEVEL 145 MMOL/L (136-145)
[2024-11-10 01:08] LABS: HEMATOCRIT 35.3 % (42.0-52.0); HEMOGLOBIN 12.1 g/dl (13.5-17.5); MEAN CORPUSCULAR HEMOGLOBIN 36.7 pg (27.0-33.0); MEAN CORPUSCULAR HGB CONC 34.3 g/dl (32.0-36.5); PLATELET COUNT, AUTOMATED 182 10^3/uL (150-450); WHITE BLOOD COUNT 3.3 10^3/uL (4.0-10.0)
[2024-11-10] MEDS: LEVOTHYROXINE 75MCG TABLET (0.075MG) PO SCH (05:14)
[2024-11-10 06:23] LABS: HEMATOCRIT 37.7 % (42.0-52.0); HEMOGLOBIN 12.7 g/dl (13.5-17.5); MEAN CORPUSCULAR HGB CONC 33.7 g/dl (32.0-36.5); MEAN CORPUSCULAR VOLUME 106.8 fl (80.0-96.0); PLATELET COUNT, AUTOMATED 180 10^3/uL (150-450); RED BLOOD COUNT 3.53 10^6/uL (4.30-6.10); WHITE BLOOD COUNT 2.9 10^3/uL (4.0-10.0)
[2024-11-10 07:02] LABS: BLOOD UREA NITROGEN 18 MG/DL (9-23); CALCIUM LEVEL 8.3 MG/DL (8.3-10.6); CARBON DIOXIDE LEVEL 29 MMOL/L (20-31); CHLORIDE LEVEL 108 MMOL/L (98-107); CREATININE FOR GFR 0.57 MG/DL (0.70-1.30); GLOMERULAR FILTRATION RATE > 60.0 (>49); GLUCOSE, FASTING 84 MG/DL (74-106); SODIUM LEVEL 143 MMOL/L (136-145)
[2024-11-10] MEDS: diazePAM 5MG TABLET PO PRN (07:34)
[2024-11-10] MEDS ORDERED: NICOTINE 14 MG/24 HR TRANSDERMAL TD SCH (21:25)
[2024-11-10] MEDS ORDERED: BISACODYL 10MG SUPP PR PRN (22:35)
[2024-11-10] MEDS: MIRALAX *UNIT DOSE* 17GM PACKET PO SCH (23:35)
[2024-11-10] MEDS: SENNA 8.6 MG TAB (SENOKOT) PO SCH (23:35)
[2024-11-11 06:24] LABS: HEMATOCRIT 36.1 % (42.0-52.0); HEMOGLOBIN 12.4 g/dl (13.5-17.5); MEAN CORPUSCULAR HEMOGLOBIN 36.7 pg (27.0-33.0); MEAN CORPUSCULAR HGB CONC 34.3 g/dl (32.0-36.5); MEAN CORPUSCULAR VOLUME 106.8 fl (80.0-96.0); PLATELET COUNT, AUTOMATED 196 10^3/uL (150-450); RED BLOOD COUNT 3.38 10^6/uL (4.30-6.10); WHITE BLOOD COUNT 3.6 10^3/uL (4.0-10.0)
[2024-11-11 06:49] LABS: BLOOD UREA NITROGEN 19 MG/DL (9-23); CALCIUM LEVEL 8.4 MG/DL (8.3-10.6); CARBON DIOXIDE LEVEL 31 MMOL/L (20-31); CHLORIDE LEVEL 107 MMOL/L (98-107); CREATININE FOR GFR 0.52 MG/DL (0.70-1.30); GLOMERULAR FILTRATION RATE > 60.0 (>49); GLUCOSE, FASTING 87 MG/DL (74-106); POTASSIUM SERUM 4.2 MMOL/L (3.5-5.1); SODIUM LEVEL 144 MMOL/L (136-145)
[2024-11-11 12:52] VITALS: BP 110/76; TEMP 97.7
[2024-11-11 20:00] VITALS: TEMP 97.5
[2024-11-11] MEDS: diazePAM 5MG TABLET PO PRN (23:30)
[2024-11-12 02:00] VITALS: BP 112/71; TEMP 97.5; O2SAT 98
[2024-11-12 06:39] LABS: HEMATOCRIT 33.7 % (42.0-52.0); HEMOGLOBIN 11.8 g/dl (13.5-17.5); MEAN CORPUSCULAR HEMOGLOBIN 36.8 pg (27.0-33.0); PLATELET COUNT, AUTOMATED 188 10^3/uL (150-450); RED BLOOD COUNT 3.21 10^6/uL (4.30-6.10); WHITE BLOOD COUNT 3.1 10^3/uL (4.0-10.0)
[2024-11-12 07:08] LABS: BLOOD UREA NITROGEN 21 MG/DL (9-23); CARBON DIOXIDE LEVEL 28 MMOL/L (20-31); CHLORIDE LEVEL 108 MMOL/L (98-107); CREATININE FOR GFR 0.58 MG/DL (0.70-1.30); GLOMERULAR FILTRATION RATE > 60.0 (>49); GLUCOSE, FASTING 85 MG/DL (74-106); SODIUM LEVEL 144 MMOL/L (136-145)
[2024-11-12 13:13] VITALS: BP 126/81; TEMP 97.9
[2024-11-12 20:00] VITALS: TEMP 97.7
[2024-11-12] MEDS: fluPHENAZine 5MG TABLET PO SCH (20:22)
[2024-11-13] VITALS: TEMP 97.5
[2024-11-13 04:00] VITALS: TEMP 96.6; O2SAT 99
[2024-11-13 06:53] LABS: HEMATOCRIT 33.7 % (42.0-52.0); HEMOGLOBIN 11.3 g/dl (13.5-17.5); MEAN CORPUSCULAR HEMOGLOBIN 35.8 pg (27.0-33.0); MEAN CORPUSCULAR HGB CONC 33.5 g/dl (32.0-36.5); MEAN CORPUSCULAR VOLUME 106.6 fl (80.0-96.0); PLATELET COUNT, AUTOMATED 199 10^3/uL (150-450); RED BLOOD COUNT 3.16 10^6/uL (4.30-6.10); WHITE BLOOD COUNT 2.8 10^3/uL (4.0-10.0)
[2024-11-13 07:22] LABS: BLOOD UREA NITROGEN 22 MG/DL (9-23); CALCIUM LEVEL 8.4 MG/DL (8.3-10.6); CARBON DIOXIDE LEVEL 29 MMOL/L (20-31); CHLORIDE LEVEL 109 MMOL/L (98-107); GLOMERULAR FILTRATION RATE > 60.0 (>49); GLUCOSE, FASTING 90 MG/DL (74-106); POTASSIUM SERUM 3.9 MMOL/L (3.5-5.1); SODIUM LEVEL 146 MMOL/L (136-145)
[2024-11-13 12:00] VITALS: BP 128/80; TEMP 97.7
[2024-11-13 20:12] VITALS: BP 133/89; TEMP 96.8
[2024-11-14 03:59] VITALS: BP 143/85; TEMP 97.5
[2024-11-14 06:22] LABS: HEMATOCRIT 34.6 % (42.0-52.0); HEMOGLOBIN 11.5 g/dl (13.5-17.5); MEAN CORPUSCULAR HEMOGLOBIN 35.5 pg (27.0-33.0); MEAN CORPUSCULAR HGB CONC 33.2 g/dl (32.0-36.5); MEAN CORPUSCULAR VOLUME 106.8 fl (80.0-96.0); PLATELET COUNT, AUTOMATED 191 10^3/uL (150-450); RED BLOOD COUNT 3.24 10^6/uL (4.30-6.10)
[2024-11-14 06:41] LABS: BLOOD UREA NITROGEN 23 MG/DL (9-23); CALCIUM LEVEL 8.3 MG/DL (8.3-10.6); CARBON DIOXIDE LEVEL 30 MMOL/L (20-31); CHLORIDE LEVEL 111 MMOL/L (98-107); CREATININE FOR GFR 0.69 MG/DL (0.70-1.30); GLOMERULAR FILTRATION RATE > 60.0 (>49); GLUCOSE, FASTING 91 MG/DL (74-106); POTASSIUM SERUM 3.8 MMOL/L (3.5-5.1); SODIUM LEVEL 146 MMOL/L (136-145)
[2024-11-14 08:00] VITALS: BP 137/82; TEMP 97.7
[2024-11-14 21:12] VITALS: TEMP 97.9
[2024-11-14 21:13] VITALS: BP 127/96; TEMP 97.9
[2024-11-14 23:24] VITALS: BP 114/73; TEMP 97.7
[2024-11-15 05:09] VITALS: BP 132/80; TEMP 97.7
[2024-11-15 06:29] LABS: HEMOGLOBIN 11.5 g/dl (13.5-17.5); MEAN CORPUSCULAR HEMOGLOBIN 37.3 pg (27.0-33.0); MEAN CORPUSCULAR HGB CONC 32.9 g/dl (32.0-36.5); MEAN CORPUSCULAR VOLUME 113.6 fl (80.0-96.0); PLATELET COUNT, AUTOMATED 173 10^3/uL (150-450); RED BLOOD COUNT 3.08 10^6/uL (4.30-6.10); WHITE BLOOD COUNT 6.4 10^3/uL (4.0-10.0)
[2024-11-15 06:57] LABS: BLOOD UREA NITROGEN 20 MG/DL (9-23); CALCIUM LEVEL 8.1 MG/DL (8.3-10.6); CARBON DIOXIDE LEVEL 27 MMOL/L (20-31); CHLORIDE LEVEL 115 MMOL/L (98-107); GLOMERULAR FILTRATION RATE > 60.0 (>49); GLUCOSE, FASTING 95 MG/DL (74-106); POTASSIUM SERUM 3.9 MMOL/L (3.5-5.1); SODIUM LEVEL 150 MMOL/L (136-145)
[2024-11-15] MEDS: SENOKOT S TAB PO SCH (20:48)
[2024-11-15 20:53] VITALS: BP 131/74; TEMP 98.6; O2SAT 97
[2024-11-16 04:00] VITALS: BP 144/76; TEMP 97.5
[2024-11-16 06:39] LABS: HEMATOCRIT 33.1 % (42.0-52.0); HEMOGLOBIN 11.1 g/dl (13.5-17.5); MEAN CORPUSCULAR HEMOGLOBIN 36.8 pg (27.0-33.0); MEAN CORPUSCULAR HGB CONC 33.5 g/dl (32.0-36.5); MEAN CORPUSCULAR VOLUME 109.6 fl (80.0-96.0); PLATELET COUNT, AUTOMATED 201 10^3/uL (150-450); RED BLOOD COUNT 3.02 10^6/uL (4.30-6.10); WHITE BLOOD COUNT 3.7 10^3/uL (4.0-10.0)
[2024-11-16 06:54] LABS: BLOOD UREA NITROGEN 23 MG/DL (9-23); CALCIUM LEVEL 8.2 MG/DL (8.3-10.6); CARBON DIOXIDE LEVEL 30 MMOL/L (20-31); CHLORIDE LEVEL 114 MMOL/L (98-107); CREATININE FOR GFR 0.63 MG/DL (0.70-1.30); GLOMERULAR FILTRATION RATE > 60.0 (>49); GLUCOSE, FASTING 94 MG/DL (74-106); POTASSIUM SERUM 3.9 MMOL/L (3.5-5.1); SODIUM LEVEL 150 MMOL/L (136-145)
[2024-11-16] MEDS: MIRALAX *UNIT DOSE* 17GM PACKET PO SCH (08:12)
[2024-11-16 20:00] VITALS: BP 140/78; TEMP 98.1
[2024-11-17 04:00] VITALS: TEMP 98.3
[2024-11-17 09:18] LABS: BLOOD UREA NITROGEN 23 MG/DL (9-23); CALCIUM LEVEL 8.1 MG/DL (8.3-10.6); CARBON DIOXIDE LEVEL 28 MMOL/L (20-31); CHLORIDE LEVEL 109 MMOL/L (98-107); CREATININE FOR GFR 0.56 MG/DL (0.70-1.30); GLOMERULAR FILTRATION RATE > 60.0 (>49); GLUCOSE, FASTING 84 MG/DL (74-106); POTASSIUM SERUM 3.8 MMOL/L (3.5-5.1); SODIUM LEVEL 146 MMOL/L (136-145)
[2024-11-18 02:33] VITALS: BP 140/78; TEMP 98.3; O2SAT 97
[2024-11-19 03:24] VITALS: BP 141/85; TEMP 97.5
[2024-11-20 05:01] VITALS: BP 138/85; TEMP 97.2
[2024-11-21 05:24] VITALS: BP 118/69; TEMP 97.5; O2SAT 96
[2024-11-21] MEDS: fluPHENAZine 5MG TABLET PO SCH (20:46)
[2024-11-22 03:55] VITALS: BP 117/66; TEMP 97.7
[2024-11-22] MEDS: carBAMazepine 100MG 5ML SUSP ORAL SYRINGE *DRAW UP EXACT DOSE PO SCH (09:00)
[2024-11-22] MEDS: OMEPRAZOLE/SODIUM BICARB 20-840MG 10ML ORAL SYRINGE GT SCH (09:00)
[2024-11-23 11:19] VITALS: BP 136/78
[2024-11-23] MEDS: LORazepam 0.5 MG TAB PO PRN (13:44)
[2024-11-24] MEDS: OMEPRAZOLE/SODIUM BICARB 20-840MG 10ML ORAL SYRINGE PO SCH (08:32)
[2024-11-25 04:43] VITALS: BP 129/76; TEMP 97.9
[2024-11-26 04:27] VITALS: BP 132/63; TEMP 98.1
[2024-11-26 08:25] LABS: HEMATOCRIT 33.7 % (42.0-52.0); HEMOGLOBIN 11.6 g/dl (13.5-17.5); MEAN CORPUSCULAR HEMOGLOBIN 37.1 pg (27.0-33.0); MEAN CORPUSCULAR HGB CONC 34.4 g/dl (32.0-36.5); MEAN CORPUSCULAR VOLUME 107.7 fl (80.0-96.0); PLATELET COUNT, AUTOMATED 211 10^3/uL (150-450); RED BLOOD COUNT 3.13 10^6/uL (4.30-6.10); WHITE BLOOD COUNT 2.7 10^3/uL (4.0-10.0)
[2024-11-26 08:54] LABS: ALBUMIN 2.4 G/DL (3.2-5.2); ALKALINE PHOSPHATASE 94 U/L (40-129); ALT/SGPT 29 U/L (7.0-40); AST/SGOT 21 U/L (<34); BILIRUBIN,TOTAL 0.3 MG/DL (0.3-1.2); BLOOD UREA NITROGEN 18 MG/DL (9-23); CALCIUM LEVEL 8.5 MG/DL (8.3-10.6); CARBON DIOXIDE LEVEL 27 MMOL/L (20-31); CHLORIDE LEVEL 106 MMOL/L (98-107); CREATININE FOR GFR 0.55 MG/DL (0.70-1.30); GLOMERULAR FILTRATION RATE > 60.0 (>49); GLUCOSE, FASTING 138 MG/DL (74-106); POTASSIUM SERUM 4.3 MMOL/L (3.5-5.1); SODIUM LEVEL 141 MMOL/L (136-145); TOTAL PROTEIN 5.9 G/DL (5.7-8.2)
[2024-11-27 05:10] VITALS: BP 125/68; TEMP 97
[2024-11-27] MEDS ORDERED: MIRALAX *UNIT DOSE* 17GM PACKET PO PRN (13:50)
[2024-11-27] MEDS: SIMVASTATIN 10 MG TAB PO SCH (20:52)
[2024-11-28 04:30] VITALS: BP 132/71; TEMP 97.5
[2024-11-29 04:04] VITALS: BP 116/77; TEMP 97.7
[2024-11-30 04:30] VITALS: BP 133/76; TEMP 97.3
[2024-11-30] MEDS ORDERED: LEVO100T5 PO (16:18)
== END 2024-11-30 18:15 | disposition home or self-care (01) | DRG 871 ==
LOC: M ED 11:20 → EDBD 11:20 → M ED INP 17:25 → M PCU 20:36 → M MS5PR 11-09 14:50
PROVIDERS: ADMIT Student in an Organized Health Care Education/Training Program; ATTEND Student in an Organized Health Care Education/Training Program
DX: A41.9 Sepsis, unspecified organism (principal); E43 Unspecified severe protein-calorie malnutrition; G93.41 Metabolic encephalopathy; F72 Severe intellectual disabilities; E87.0 Hyperosmolality and hypernatremia; Z68.1 Body mass index [BMI] 19.9 or less, adult; E03.9 Hypothyroidism, unspecified; E87.6 Hypokalemia; K56.41 Fecal impaction; R13.10 Dysphagia, unspecified; F63.81 Intermittent explosive disorder; D70.2 Other drug-induced agranulocytosis; R26.89 Other abnormalities of gait and mobility; E78.5 Hyperlipidemia, unspecified; R29.6 Repeated falls; Z79.899 Other long term (current) drug therapy; G40.909 Epilepsy, unspecified, not intractable, without status epilepticus; R31.1 Benign essential microscopic hematuria

== ENCOUNTER → 2024-12-09 | Outpatient (CLI) | payer MEDICARE ==
[~2024-12-09] MED LIST changes: +AMOX875T2 PO; +APAP325T4 PO; +AZIT-12 PO; +CALC1TAB63 PO; +DIAZ10TA2 PO; +DIPH50CA29 PO; +DOK100TA2 PO; +FOLI1TAB11 PO; +IBUP-1720 PO; +LEVO100T5 PO; +LEVO50TA5 PO; -LEVOTHYROXINE 100MCG (0.1MG) 5ML SDV PF (SOLUTION FORM) IV ONE; +MURI6.5D AU; +STRETAB36 PO; +VITA500045 PO
== END ==
LOC: M RAD 17:33
PROVIDERS: ATTEND Physician Assistant
DX: Z53.9 Procedure and treatment not carried out, unspecified reason (principal)

== ENCOUNTER 2025-02-10 10:33 | Inpatient (IN) | payer MEDICARE ==
[~2025-02-10] VITALS: Ht 162.6 cm; Wt 41.1 kg
[~2025-02-10 10:33] MED LIST changes: +UNRESOLVED CLARIFICATION ENTRY XX SCH
[2025-02-10] MEDS ORDERED: ISOVUE-370 76% 100ML VIAL As Ordered ONE (11:30)
[2025-02-10] MEDS: diazePAM 10MG/2ML SYRINGE IV ONE (12:25)
[2025-02-10 12:29] LABS: EOS % 0.5 % (0.0-3.0); HEMATOCRIT 31.2 % (42.0-52.0); HEMOGLOBIN 10.4 g/dl (13.5-17.5); LYMPH # 0.7 10^3/uL (1.5-5.0); LYMPH % 35.8 % (24.0-44.0); MEAN CORPUSCULAR HEMOGLOBIN 37.1 pg (27.0-33.0); MEAN CORPUSCULAR HGB CONC 33.3 g/dl (32.0-36.5); MEAN CORPUSCULAR VOLUME 111.4 fl (80.0-96.0); MONO # 0.2 10^3/uL (0.0-0.8); MONO % 9.6 % (2.0-8.0); NEUTROPHILS % 54.1 % (36.0-66.0); PLATELET COUNT, AUTOMATED 123 10^3/uL (150-450); WHITE BLOOD COUNT 1.9 10^3/uL (4.0-10.0)
[2025-02-10 12:41] LABS: INR 1.11; PARTIAL THROMBOPLASTIN TIME 29.7 SECONDS (24.8-34.2); PROTHROMBIN TIME 14.6 SECONDS (12.5-14.5)
[2025-02-10 13:03] LABS: CPK CREATINE PHOSPHOKINASE 96 U/L (46-171)
[2025-02-10 13:13] LABS: BLOOD UREA NITROGEN 37 MG/DL (9-23); CALCIUM LEVEL 7.9 MG/DL (8.3-10.6); CARBON DIOXIDE LEVEL 35 MMOL/L (20-31); CHLORIDE LEVEL 120 MMOL/L (98-107); CK-MB VALUE MASS 1.7 NG/ML (<3.6); CREATININE FOR GFR 0.54 MG/DL (0.70-1.30); GLOMERULAR FILTRATION RATE > 60.0 (>49); GLUCOSE, FASTING 52 MG/DL (74-106); MB/CK RELATIVE INDEX 1.77 (< OR =4); POTASSIUM SERUM 3.7 MMOL/L (3.5-5.1); SODIUM LEVEL 164 MMOL/L (136-145)
[2025-02-10] MEDS: DEXTROSE 50% 50ML SYRINGE IV STA (14:50)
[2025-02-10] MEDS ORDERED: LEVO100T5 PO (15:05)
[2025-02-10] MEDS ORDERED: HOME MED LIST COMPLETE! XX SCH ×2 (15:05)
[2025-02-10] MEDS: KCL 20MEQ IN D5W 1000ML 1,000 ML IV SCH (15:51)
[2025-02-10] MEDS ORDERED: DEXTROSE 50% 50ML SYRINGE IV PRN (16:25)
[2025-02-10] MEDS ORDERED: GLUCOSE 4 GM CHEW PO PRN (16:25)
[2025-02-10] MEDS ORDERED: GLUCAGON INJ 1MG VIAL SC PRN (16:25)
[2025-02-10] MEDS ORDERED: diazePAM 10MG/2ML SYRINGE IV PRN (16:30)
[2025-02-10] MEDS: carBAMazepine 200MG TABLET PO SCH (17:00)
[2025-02-10] MEDS: NS (Normal Saline) 0.9% 1,000 ML IV ONE (17:20)
[2025-02-10 18:40] LABS: BLOOD UREA NITROGEN 32 MG/DL (9-23); CALCIUM LEVEL 7.7 MG/DL (8.3-10.6); CARBON DIOXIDE LEVEL 35 MMOL/L (20-31); CHLORIDE LEVEL 121 MMOL/L (98-107); CREATININE FOR GFR 0.58 MG/DL (0.70-1.30); GLOMERULAR FILTRATION RATE > 60.0 (>49); GLUCOSE, FASTING 123 MG/DL (74-106); IRON (FE) 74 UG/DL (65-175); PERCENT SATURATION 38.9 % (19.7-50.0); POTASSIUM SERUM 3.1 MMOL/L (3.5-5.1); SODIUM LEVEL 160 MMOL/L (136-145); TOTAL IRON BINDING CAPACITY 190 UG/DL (250-425)
[2025-02-10 18:41] LABS: FERRITIN 745.2 NG/ML (10.5-307.3)
[2025-02-10 18:42] LABS: FREE T4 0.76 NG/DL (0.89-1.76); THYROID STIMULATING HORMONE 6.143 uIU/ML (0.55-4.78); VITAMIN B12 LEVEL 1565 PG/ML (211-911)
[2025-02-10 18:43] LABS: FOLATE 20.88 NG/ML (>5.4)
[2025-02-10 22:25] VITALS: BP 153/91; TEMP 98.1; O2SAT 97
[2025-02-10] MEDS: SIMVASTATIN 10 MG TAB PO SCH (23:10)
[2025-02-10] MEDS: fluPHENAZine 5MG TABLET PO SCH (23:10)
[2025-02-10] MEDS: diphenhydrAMINE 50MG CAP PO SCH (23:10)
[2025-02-10 23:55] VITALS: BP 148/83; TEMP 97.8; O2SAT 100
[2025-02-11 00:37] LABS: KETONE, URINE AUTO RFX NEGATIVE (NEGATIVE); LEUKOCYTE ESTERASE UR AUTO RFX NEGATIVE (NEGATIVE); NITRITE, URINE AUTO RFX NEGATIVE (NEGATIVE); RBC, URINE AUTO RFX 0 /HPF (0-3); SQUAM EPITHELIAL CELL UR AURFX 0 /HPF (0-6); WBC, URINE AUTO RFX 0 /HPF (0-3)
[2025-02-11 00:41] LABS: BLOOD UREA NITROGEN 26 MG/DL (9-23); CALCIUM LEVEL 7.5 MG/DL (8.3-10.6); CARBON DIOXIDE LEVEL 34 MMOL/L (20-31); CHLORIDE LEVEL 117 MMOL/L (98-107); GLOMERULAR FILTRATION RATE > 60.0 (>49); GLUCOSE, FASTING 114 MG/DL (74-106); SODIUM LEVEL 157 MMOL/L (136-145)
[2025-02-11] MEDS: POTASSIUM CHLORIDE 10MEQ SR TABLET PO ONE (01:51)
[2025-02-11 04:06] VITALS: BP 136/77; TEMP 97.6
[2025-02-11 04:16] VITALS: O2SAT 100
[2025-02-11] MEDS: KCL 20MEQ IN D5W 1000ML 1,000 ML IV SCH (05:10)
[2025-02-11] MEDS: LEVOTHYROXINE 100MCG TABLET (0.1MG) PO SCH (05:10)
[2025-02-11 07:41] LABS: HEMATOCRIT 30.4 % (42.0-52.0); HEMOGLOBIN 10.2 g/dl (13.5-17.5); MEAN CORPUSCULAR HEMOGLOBIN 37.1 pg (27.0-33.0); MEAN CORPUSCULAR HGB CONC 33.6 g/dl (32.0-36.5); MEAN CORPUSCULAR VOLUME 110.5 fl (80.0-96.0); PLATELET COUNT, AUTOMATED 141 10^3/uL (150-450); RED BLOOD COUNT 2.75 10^6/uL (4.30-6.10); WHITE BLOOD COUNT 2.6 10^3/uL (4.0-10.0)
[2025-02-11 07:56] VITALS: BP 152/74; TEMP 97.2; O2SAT 98
[2025-02-11 08:08] LABS: BLOOD UREA NITROGEN 23 MG/DL (9-23); CALCIUM LEVEL 7.6 MG/DL (8.3-10.6); CARBON DIOXIDE LEVEL 33 MMOL/L (20-31); CHLORIDE LEVEL 115 MMOL/L (98-107); CREATININE FOR GFR 0.52 MG/DL (0.70-1.30); GLOMERULAR FILTRATION RATE > 60.0 (>49); GLUCOSE, FASTING 95 MG/DL (74-106); POTASSIUM SERUM 3.5 MMOL/L (3.5-5.1); SODIUM LEVEL 154 MMOL/L (136-145)
[2025-02-11] MEDS: FOLIC ACID 1MG TAB PO SCH (08:53)
[2025-02-11] MEDS: ENOXAPARIN 40MG/0.4ML SYRINGE (J1650 PER 10MG) SC SCH (08:53)
[2025-02-11] MEDS: PANTOPRAZOLE 40MG VIAL IV SCH (08:54)
[2025-02-11 11:48] VITALS: BP 113/72; TEMP 97
[2025-02-11 13:34] LABS: BLOOD UREA NITROGEN 20 MG/DL (9-23); CALCIUM LEVEL 7.5 MG/DL (8.3-10.6); CARBON DIOXIDE LEVEL 30 MMOL/L (20-31); CHLORIDE LEVEL 115 MMOL/L (98-107); CREATININE FOR GFR 0.47 MG/DL (0.70-1.30); GLOMERULAR FILTRATION RATE > 60.0 (>49); GLUCOSE, FASTING 89 MG/DL (74-106); POTASSIUM SERUM 3.5 MMOL/L (3.5-5.1); SODIUM LEVEL 151 MMOL/L (136-145)
[2025-02-11 15:47] VITALS: BP 142/90; TEMP 98
[2025-02-11 18:51] LABS: BLOOD UREA NITROGEN 18 MG/DL (9-23); CALCIUM LEVEL 7.3 MG/DL (8.3-10.6); CARBON DIOXIDE LEVEL 28 MMOL/L (20-31); CHLORIDE LEVEL 113 MMOL/L (98-107); CREATININE FOR GFR 0.45 MG/DL (0.70-1.30); GLOMERULAR FILTRATION RATE > 60.0 (>49); GLUCOSE, FASTING 108 MG/DL (74-106); POTASSIUM SERUM 3.8 MMOL/L (3.5-5.1); SODIUM LEVEL 148 MMOL/L (136-145)
[2025-02-12 00:22] LABS: BLOOD UREA NITROGEN 18 MG/DL (9-23); CALCIUM LEVEL 7.3 MG/DL (8.3-10.6); CARBON DIOXIDE LEVEL 29 MMOL/L (20-31); CHLORIDE LEVEL 109 MMOL/L (98-107); CREATININE FOR GFR 0.49 MG/DL (0.70-1.30); GLOMERULAR FILTRATION RATE > 60.0 (>49); GLUCOSE, FASTING 98 MG/DL (74-106); POTASSIUM SERUM 3.7 MMOL/L (3.5-5.1); SODIUM LEVEL 145 MMOL/L (136-145)
[2025-02-12] MEDS: LEVOTHYROXINE 125MCG TABLET (0.125MG) PO SCH (06:58)
[2025-02-12 07:37] LABS: BASO % 0.3 % (0.0-1.0); EOS % 0.8 % (0.0-3.0); HEMATOCRIT 28.9 % (42.0-52.0); LYMPH # 0.9 10^3/uL (1.5-5.0); MEAN CORPUSCULAR HEMOGLOBIN 36.4 pg (27.0-33.0); MEAN CORPUSCULAR HGB CONC 34.6 g/dl (32.0-36.5); MEAN CORPUSCULAR VOLUME 105.1 fl (80.0-96.0); MONO # 0.2 10^3/uL (0.0-0.8); MONO % 4.8 % (2.0-8.0); NEUTROPHILS # 2.8 10^3/uL (1.5-8.5); NEUTROPHILS % 70.6 % (36.0-66.0); PLATELET COUNT, AUTOMATED 164 10^3/uL (150-450); RED BLOOD COUNT 2.75 10^6/uL (4.30-6.10)
[2025-02-12 07:59] LABS: MAGNESIUM LEVEL 1.6 MG/DL (1.8-2.4)
[2025-02-12 08:00] VITALS: BP 126/88; TEMP 98; O2SAT 96
[2025-02-12 08:00] LABS: BLOOD UREA NITROGEN 14 MG/DL (9-23); CALCIUM LEVEL 7.4 MG/DL (8.3-10.6); CARBON DIOXIDE LEVEL 29 MMOL/L (20-31); CHLORIDE LEVEL 109 MMOL/L (98-107); CREATININE FOR GFR 0.45 MG/DL (0.70-1.30); GLOMERULAR FILTRATION RATE > 60.0 (>49); GLUCOSE, FASTING 105 MG/DL (74-106); POTASSIUM SERUM 3.7 MMOL/L (3.5-5.1); SODIUM LEVEL 143 MMOL/L (136-145)
[2025-02-12 08:03] LABS: FOLATE 23.97 NG/ML (>5.4)
[2025-02-12] MEDS: MAG SULF 1GM/100ML (MAG RUN) 1 GM in IV 1 EA IV SCH (10:42)
[2025-02-12 13:15] LABS: BLOOD UREA NITROGEN 13 MG/DL (9-23); CALCIUM LEVEL 7.4 MG/DL (8.3-10.6); CARBON DIOXIDE LEVEL 28 MMOL/L (20-31); CHLORIDE LEVEL 109 MMOL/L (98-107); CREATININE FOR GFR 0.47 MG/DL (0.70-1.30); GLOMERULAR FILTRATION RATE > 60.0 (>49); GLUCOSE, FASTING 77 MG/DL (74-106); POTASSIUM SERUM 3.6 MMOL/L (3.5-5.1); SODIUM LEVEL 142 MMOL/L (136-145)
[2025-02-12 14:00] VITALS: BP 132/90; TEMP 97.6; O2SAT 97
[2025-02-12 18:47] LABS: BLOOD UREA NITROGEN 13 MG/DL (9-23); CARBON DIOXIDE LEVEL 28 MMOL/L (20-31); CHLORIDE LEVEL 107 MMOL/L (98-107); CREATININE FOR GFR 0.51 MG/DL (0.70-1.30); GLOMERULAR FILTRATION RATE > 60.0 (>49); GLUCOSE, FASTING 139 MG/DL (74-106); POTASSIUM SERUM 3.8 MMOL/L (3.5-5.1); SODIUM LEVEL 139 MMOL/L (136-145)
[2025-02-12 19:45] VITALS: BP 120/74; TEMP 97.4; O2SAT 96
[2025-02-13 00:39] LABS: BLOOD UREA NITROGEN 12 MG/DL (9-23); CALCIUM LEVEL 7.3 MG/DL (8.3-10.6); CARBON DIOXIDE LEVEL 29 MMOL/L (20-31); CHLORIDE LEVEL 108 MMOL/L (98-107); CREATININE FOR GFR 0.57 MG/DL (0.70-1.30); GLOMERULAR FILTRATION RATE > 60.0 (>49); GLUCOSE, FASTING 87 MG/DL (74-106); POTASSIUM SERUM 3.9 MMOL/L (3.5-5.1); SODIUM LEVEL 142 MMOL/L (136-145)
[2025-02-13 03:15] VITALS: BP 124/72; TEMP 97.2; O2SAT 96
[2025-02-13 04:53] LABS: BASO % 0.3 % (0.0-1.0); EOS % 0.9 % (0.0-3.0); HEMATOCRIT 28.7 % (42.0-52.0); HEMOGLOBIN 10.2 g/dl (13.5-17.5); LYMPH # 0.8 10^3/uL (1.5-5.0); MEAN CORPUSCULAR HEMOGLOBIN 36.8 pg (27.0-33.0); MEAN CORPUSCULAR HGB CONC 35.5 g/dl (32.0-36.5); MEAN CORPUSCULAR VOLUME 103.6 fl (80.0-96.0); MONO # 0.2 10^3/uL (0.0-0.8); NEUTROPHILS # 2.4 10^3/uL (1.5-8.5); NEUTROPHILS % 68.9 % (36.0-66.0); PLATELET COUNT, AUTOMATED 144 10^3/uL (150-450); RED BLOOD COUNT 2.77 10^6/uL (4.30-6.10); WHITE BLOOD COUNT 3.4 10^3/uL (4.0-10.0)
[2025-02-13 05:49] LABS: BLOOD UREA NITROGEN 11 MG/DL (9-23); CALCIUM LEVEL 7.1 MG/DL (8.3-10.6); CARBON DIOXIDE LEVEL 27 MMOL/L (20-31); CHLORIDE LEVEL 109 MMOL/L (98-107); CREATININE FOR GFR 0.52 MG/DL (0.70-1.30); GLOMERULAR FILTRATION RATE > 60.0 (>49); GLUCOSE, FASTING 75 MG/DL (74-106); MAGNESIUM LEVEL 2.1 MG/DL (1.8-2.4); POTASSIUM SERUM 4.1 MMOL/L (3.5-5.1); SODIUM LEVEL 141 MMOL/L (136-145)
[2025-02-13 08:00] VITALS: BP 121/75; TEMP 98.1; O2SAT 97
[2025-02-13 12:35] VITALS: BP 110/72; TEMP 100.2; O2SAT 97
[2025-02-13 13:03] LABS: BLOOD UREA NITROGEN 13 MG/DL (9-23); CALCIUM LEVEL 7.1 MG/DL (8.3-10.6); CARBON DIOXIDE LEVEL 27 MMOL/L (20-31); CHLORIDE LEVEL 106 MMOL/L (98-107); CREATININE FOR GFR 0.46 MG/DL (0.70-1.30); GLOMERULAR FILTRATION RATE > 60.0 (>49); GLUCOSE, FASTING 102 MG/DL (74-106); SODIUM LEVEL 138 MMOL/L (136-145)
[2025-02-13 16:41] VITALS: BP 108/72; TEMP 98.6; O2SAT 95
[2025-02-13 19:44] VITALS: BP 129/79; TEMP 98.7; O2SAT 96
[2025-02-13 23:31] VITALS: BP 121/76; TEMP 98.6; O2SAT 96
[2025-02-14 04:03] LABS: BASO % 0.4 % (0.0-1.0); EOS % 1.2 % (0.0-3.0); HEMATOCRIT 27.9 % (42.0-52.0); HEMOGLOBIN 9.9 g/dl (13.5-17.5); LYMPH # 0.8 10^3/uL (1.5-5.0); LYMPH % 30.4 % (24.0-44.0); MEAN CORPUSCULAR HEMOGLOBIN 37.5 pg (27.0-33.0); MEAN CORPUSCULAR HGB CONC 35.5 g/dl (32.0-36.5); MEAN CORPUSCULAR VOLUME 105.7 fl (80.0-96.0); MONO # 0.2 10^3/uL (0.0-0.8); MONO % 8.9 % (2.0-8.0); NEUTROPHILS # 1.5 10^3/uL (1.5-8.5); NEUTROPHILS % 57.9 % (36.0-66.0); PLATELET COUNT, AUTOMATED 145 10^3/uL (150-450); RED BLOOD COUNT 2.64 10^6/uL (4.30-6.10); WHITE BLOOD COUNT 2.6 10^3/uL (4.0-10.0)
[2025-02-14 04:25] LABS: BLOOD UREA NITROGEN 9 MG/DL (9-23); CALCIUM LEVEL 7.2 MG/DL (8.3-10.6); CARBON DIOXIDE LEVEL 27 MMOL/L (20-31); CHLORIDE LEVEL 109 MMOL/L (98-107); CREATININE FOR GFR 0.46 MG/DL (0.70-1.30); GLOMERULAR FILTRATION RATE > 60.0 (>49); GLUCOSE, FASTING 107 MG/DL (74-106); POTASSIUM SERUM 3.6 MMOL/L (3.5-5.1); SODIUM LEVEL 142 MMOL/L (136-145)
[2025-02-14 04:30] VITALS: BP 117/71; TEMP 99; O2SAT 96
[2025-02-14 08:15] VITALS: BP 128/78; TEMP 99.4
[2025-02-14] MEDS ORDERED: LEVO125T4 PO (09:35)
[2025-02-14] MEDS ORDERED: diazePAM 10 MG TAB PO PRN (09:40)
[2025-02-14 19:44] VITALS: BP 130/80; TEMP 98; O2SAT 97
[2025-02-14] MEDS ORDERED: diazePAM 5MG TABLET PO PRN (21:40)
[2025-02-15 08:17] VITALS: BP 118/76; TEMP 98.5; O2SAT 100
[2025-02-15] MEDS: OMEPRAZOLE 20MG CAP PO SCH (08:28)
[2025-02-16 04:58] VITALS: BP 143/81; TEMP 97.5
[2025-02-17 05:27] VITALS: BP 131/81; TEMP 97.6
[2025-02-17 09:06] LABS: COPPER, RBC 0.51 ug/mL (0.50-1.00)
[2025-02-17 16:31] LABS: BLOOD UREA NITROGEN 15 MG/DL (9-23); CALCIUM LEVEL 6.8 MG/DL (8.3-10.6); CARBON DIOXIDE LEVEL 27 MMOL/L (20-31); CHLORIDE LEVEL 105 MMOL/L (98-107); GLOMERULAR FILTRATION RATE > 60.0 (>49); GLUCOSE, FASTING 96 MG/DL (74-106); POTASSIUM SERUM 4.2 MMOL/L (3.5-5.1); SODIUM LEVEL 136 MMOL/L (136-145)
[2025-02-19 05:57] VITALS: BP 116/70; TEMP 97.7
[2025-02-20 04:00] VITALS: BP 129/80; TEMP 97.5
[2025-02-20] MEDS ORDERED: BISACODYL 10MG SUPP PR PRN (17:55)
[2025-02-20] MEDS: DOCUSATE SODIUM 100MG CAPSULE PO SCH (20:19)
[2025-02-21 06:04] VITALS: BP 132/86; TEMP 98.2
[2025-02-21] MEDS: MIRALAX *UNIT DOSE* 17GM PACKET PO PRN (12:33)
[2025-02-22 04:38] VITALS: BP 100/60; TEMP 97.9
== END 2025-02-22 11:45 | disposition home or self-care (01) | DRG 640 ==
LOC: EDBD 10:33 → M ED 10:33 → M ED INP 16:17 → M PCU 22:06 → M MS5PR 02-16 00:01
PROVIDERS: ADMIT Internal Medicine; ATTEND Internal Medicine
DX: E87.0 Hyperosmolality and hypernatremia (principal); E43 Unspecified severe protein-calorie malnutrition; R64 Cachexia; Z68.1 Body mass index [BMI] 19.9 or less, adult; D61.818 Other pancytopenia; F72 Severe intellectual disabilities; G40.909 Epilepsy, unspecified, not intractable, without status epilepticus; E78.5 Hyperlipidemia, unspecified; E87.6 Hypokalemia; E16.2 Hypoglycemia, unspecified; R13.12 Dysphagia, oropharyngeal phase; K21.9 Gastro-esophageal reflux disease without esophagitis; E83.42 Hypomagnesemia; F63.81 Intermittent explosive disorder; E03.9 Hypothyroidism, unspecified; R53.1 Weakness; R26.89 Other abnormalities of gait and mobility; Z79.890 Hormone replacement therapy; Z79.899 Other long term (current) drug therapy

== ENCOUNTER → 2025-11-03 | Outpatient (CLI) | payer MEDICARE ==
[~2025-11-03] MED LIST changes: +CARB-19 PO; -CARB1TAB20 PO; +ERGO125013 PO; +LEVO125T4 PO; -UNRESOLVED CLARIFICATION ENTRY XX SCH; -VITA500045 PO
[2025-11-03 17:33] LABS: CALCIUM LEVEL 8.5 MG/DL (8.3-10.6); CARBON DIOXIDE LEVEL 31 MMOL/L (20-31); CHLORIDE LEVEL 100 MMOL/L (98-107); CREATININE FOR GFR 0.57 MG/DL (0.70-1.30); GLOMERULAR FILTRATION RATE > 90.0 (>42); MAGNESIUM LEVEL 2.0 MG/DL (1.8-2.4); PHOSPHORUS LEVEL 3.2 MG/DL (2.4-5.1); POTASSIUM SERUM 3.7 MMOL/L (3.5-5.1); PTH INTACT 21.2 PG/ML (18.5-88.0); SODIUM LEVEL 137 MMOL/L (136-145)
[2025-11-03 17:35] LABS: TOTAL 25(OH) VITAMIN D 42.4 NG/ML (20.0-100.0)
== END ==
LOC: M PLALAB 14:27
PROVIDERS: ATTEND Nurse Practitioner Family
DX: E83.51 Hypocalcemia (principal)